=== PATIENT | female | born 1990 | race Asian ===

== ENCOUNTER 2016-07-21 20:56 | Inpatient (IN) | payer OTHER ==
[~2016-07-21] VITALS: Ht 134.6 cm; Wt 61.6 kg
[2016-07-21] MEDS ORDERED: CHARCOAL ACTIVATED LIQUID 25 GM/120 ML BTL As Ordered ONE ×2 (21:21→21:24)
[2016-07-21 21:48] LABS: CONTROL LINE INT CTR LINE PRESENT; METHADONE URINE NEGATIVE (NEGATIVE); TRICYCLIC ANTIDEPRESS URINE NEGATIVE (NEGATIVE)
[2016-07-21 21:58] LABS: MEAN CORPUSCULAR HGB CONC 32.5 g/dl (32.0-36.5); MEAN CORPUSCULAR VOLUME 80.1 fl (80.0-96.0); RED CELL DISTRIBUTION WIDTH 12.8 % (11.5-14.5); WHITE BLOOD COUNT 5.6 K/mm3 (4.0-10.0)
[2016-07-21 22:04] LABS: CONTROL LINE HCG INT CTR LINE PRESENT
--- NOTE | 2016-07-21 22:04 | ECGEPIP ---
Stationary ECG Study 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
[2016-07-21 22:21] LABS: ALBUMIN/GLOBULIN RATIO 1.29 (1.00-1.93); ALKALINE PHOSPHATASE 53 U/L (45-117); ALT/SGPT 29 U/L (12-78); ANION GAP 12 MEQ/L (8-16); AST/SGOT 20 U/L (15-37); BILIRUBIN,DIRECT 0.2 MG/DL (0.0-0.2); BILIRUBIN,TOTAL 0.9 MG/DL (0.2-1.0); BLOOD UREA NITROGEN 10 MG/DL (7-18); CALCIUM LEVEL 8.4 MG/DL (8.5-10.1); CARBON DIOXIDE LEVEL 23 MEQ/L (21-32); CHLORIDE LEVEL 108 MEQ/L (98-107); CREATININE FOR GFR 0.76 MG/DL (0.55-1.02); GLOMERULAR FILTRATION RATE > 60.0 (>60); GLUCOSE, FASTING 103 MG/DL (70-105); POTASSIUM SERUM 3.5 MEQ/L (3.5-5.1); SODIUM LEVEL 143 MEQ/L (136-145); TOTAL PROTEIN 7.1 GM/DL (6.4-8.2)
[2016-07-22] MEDS ORDERED: WELL100T2 PO (00:16)
[2016-07-22] MEDS ORDERED: AMBI5TAB PO (00:16)
[2016-07-22] MEDS ORDERED: LEXA1TAB2 PO (00:16)
[2016-07-22] MEDS ORDERED: MOM 30ML SUSPENSION UDC PO PRN (02:15)
[2016-07-22] MEDS ORDERED: MAALOX 30 ML SUSP *UDC PO PRN (02:15)
[2016-07-22] MEDS ORDERED: ACETAMINOPHEN TAB 650MG DOSE (2X325MG) PO PRN (02:15)
[2016-07-22] MEDS ORDERED: traZODone 50 MG TAB PO PRN (02:15)
[2016-07-22 02:52] VITALS: BP 138/98
--- NOTE | 2016-07-22 03:12 | EDDOCDS ---
Nurse's Notes [facility] Name: Roshan Jones Age: 25 yrs Sex: Female : 1990 Arrival Date: 07/21/2016 Time: 20:56 Bed OBSERVATION Private MD: Diagnosis: Intentional self-harm by sharp object;Adverse effect of selective serotonin and norepinephrine reuptake inhibitors-intentional overdosing of same without complications Presentation: 07/21 21:06 Presenting complaint: Patient states: patient crying states "I took a few pills I was cf2 upset". Denies SI/HI EMS states: Took approx 5 pills of Lexapro 20mg po and patient also with superficial laceration after getting into verbal disagreement. Adult Sepsis Screening: The patient does not have new or worsening altered mentation. Patient's respiratory rate is less than 22. Systolic blood pressure is greater than 100. Patient has a qSOFA score of 0- Negative Sepsis Screen. Suicide/Homicide risk assessment- The patient admits to and/or has been reported to be having suicidal ideations. 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 Transition of care: patient was not received from another setting of care. 21:06 Acuity: RAHUL Level 3 cf2 21:06 Method Of Arrival: Ambulance cf2 Triage Assessment: 21:11 General: Appears distressed, Behavior is cooperative, crying. Pain: Denies pain. Pt cf2 Declines HIV testing. The patient is triaged at the bedside. See Assessment in Nurses Notes section of ED record. Neurological: No deficits noted. EENT: No deficits noted. Cardiovascular: No deficits noted. Respiratory: No deficits noted. GI: No deficits noted. : No deficits noted. Derm: No deficits noted. Musculoskeletal: No deficits noted. Injury Description: No known injury. 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 Ambien Unknown Oral 2. Wellbutrin Unknown Oral 3. Lexapro 20 mg Oral tab - PMHx: Depression; - Social history: Smoking status: Patient states was never smoker of tobacco. Race: , Ethnicity: Not or No barriers to communication noted, Preferred Language: Kyrgyz. - Family history: Not pertinent. - : The pt / caregiver states he / she is not on anticoagulants. Home medication list is obtained from the patient. - Exposure Risk Screening:: None identified. Screenin:30 Screening information is obtained from the patient. Fall risk: No risks identified. cf2 Assistance ADL's: requires no assistance with activities of daily living. Abuse/DV Screen: The patient / caregiver reports he/she is: not in a situation that causes fear, pain or injury. Nutritional screening: No deficits noted. Advance Directives: Further advance directive information is declined. home support is adequate. Referral is made to PSA, Patient stated she took Lexapro 5 tabs po after a verbal altercation with s/o. Assessment: 21:00 General: Appears in no apparent distress, Behavior is cooperative, crying. cf2 21:00 Pain: Denies pain. Neurological: No deficits noted. EENT: No deficits noted. cf2 Cardiovascular: No deficits noted. Respiratory: No deficits noted. GI: No deficits noted. : No deficits noted. Derm: No deficits noted. Musculoskeletal: No deficits noted. Injury Description: Superficial laceration to inner left wrist. No bleeding at present time. 23:36 Reassessment: Patient appears in no apparent distress at this time. Patient denies pain cf2 at this time. Patient states feeling better. Adult Sepsis Screening: The patient does not have new or worsening altered mentation. Patient's respiratory rate is less than 22. Systolic blood pressure is greater than 100. Patient has a qSOFA score of 0- Negative Sepsis Screen. General: See triage note . Neurological: No deficits noted. Cardiovascular: No deficits noted. Respiratory: No deficits noted. GI: No deficits noted. : No deficits noted. Derm: superficial laceration to left inner wrist. Musculoskeletal: No deficits noted. Injury Description: superficial laceration. 23:42 General: After being medically cleared, patient's saline lock was D/C'd and patient was cf2 moved to psych room 1. Patient's CO at bedside. Patient currently alert and oriented, remains calm and cooperative, no longer crying. . 07/22 01:26 General: Appears in no apparent distress, Pt resting on stretcher, calm and sls1 cooperative, security observing will continue to assess. 02:44 Reassessment: Patient appears in no apparent distress at this time. 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 [facility]: cl The patient is not an established patient of [facility]. Referral Information: Evaluation referral is generated by [facility]. The patient was referred for evaluation because Pt ingested extra medications earlier this evening with intent of self harm.. Subjective: The patients chief complaint is Pt is flat, quiet, poor eye contact, minimal speech, admits to ingesting extra medications to "sleep forever", adds that she "just gave up" after BF broke up with her yesterday. Pt states "it all just clicked", referring to realization that the man she had been seeing for 6 months had no intention of his spouse to be with pt as she was led to believe. Pt reports "we were trying to have children together", thought BF's was aware of their relationship and was confident that BF would leave his spouse. Pt states "he just cheated on his with me, that's what it comes down to", pt admits to feeling suicidal today, had a few shots of "Jason, straight" and then took pills. Pt denies prior psych admissions but admits to taking pills with suicidal intent 02/19 but did not report it/seek tx at that time. Pt denies HI/AH/VH/substance abuse, has been in tx at [facility] for depression, denies family psych hx/issues.. Delusions are denied. Patient's mood is depressed, Hallucinations are denied. Mental Health history: depression, suicide attempt by attempted by OD last February, did not report it. Mental Health Admissions: None. Current Outpatient Mental Health Services: Psychiatrist / Agency: [facility]. Current living environment is The patient currently lives in a [facility]. The patient is single. Patient presents to Emergency Department with the following symptoms within the past 2 weeks: depressed mood, feelings of helplessness/hopelessness, poor impulse control, relational problem, sleep disturbance - insomnia, suicidal ideation with attempt/gesture by pills. Substance abuse: Pt denies. Mental status exam: Patients appearance is appropriate, Patient's behavior is minimally responsive Speech is mumbled. Affect is flat. Mood is depressed. Hallucinations are denied. Appetite is erratic Memory is fair. Energy level is tires easily. Content of thought is depressive. depressive Thought process is intact. Cognitive level is oriented to person, place, time and situation Patient's insight is poor. Judgement is poor. Rapport with interviewer is guarded. Suicidal Ideation present with a plan to kill self by pills. Homicidal ideation is not present. Disposition: Medically cleared for disposition by Romina Brar DO Psychiatric Consult is performed by phone with Dr Yunior Valderrama MD. 23:41 [facility] Admission Criteria: The patient has had a suicide attempt in the recent past. The cl patient displays symptoms of severe psychiatric disorder resulting in disordered behavior and significant interference with his / her ability to maintain self care. Psychomotor Retardation. poor impulse control. The patient requires continuous observation and/or control to protect self, others or property. The patient's care requires a multi-modal treatment plan under close supervision and coordination due to the complexity and severity of the patient's symptoms. Legal Status: Patient's legal status will be Emergency admission: . [place] Safe Act: [place] Safe Act is applicable to this patient. The patient poses a risk to self or other and the Nursing Visual Design Lead has been notified. He/She will enter the patient's data. DSM-V Differential Diagnosis: Adjustment Disorder (F43.2) with depressed mood (F43.21). Insurance Pre-Certification: Not Required, . Awaiting: transfer to [facility]. 23:53 Family Notification: Family notified of admission to [facility], Notification was given to Abby LUJAN in ED with pt... Vital Signs: 20:59 BP 143 / 93; Pulse 107; Resp 18; Temp 99.3(O); Pulse Ox 97% on R/A; Weight 61.23 kg rn1 (R); Height 53 in. (134.62 cm) (R); Pain 0/10; 21:32 Pulse 99 MON; cf2 21:35 Pulse 98 MON; cf2 21:38 Pulse 102 MON; cf2 21:44 Pulse 108 MON; cf2 21:47 Pulse 99 MON; cf2 21:51 Pulse 96 MON; cf2 21:56 Pulse 110 MON; cf2 21:59 Pulse 103 MON; cf2 22:03 Pulse 105 MON; cf2 22:09 Pulse 108 MON; cf2 22:13 Pulse 106 MON; cf2 22:17 Pulse 99 MON; cf2 22:21 Pulse 98 MON; cf2 22:27 Pulse 96 MON; cf2 22:30 BP 132 / 78; Temp 98.1; Pulse Ox 99% on R/A; Pain 0/10; cf2 22:32 Pulse 93 MON; cf2 22:38 Pulse 95 MON; cf2 22:41 Pulse 96 MON; cf2 22:47 Pulse 95 MON; cf2 22:52 Pulse 94 MON; cf2 22:56 Pulse 102 MON; cf2 07/22 02:43 BP 120 / 77; Pulse 103; Resp 18; Temp 97.6(T); Pulse Ox 98% ; Pain 0/10; mas 07/21 20:59 Body Mass Index 33.79 (61.23 kg, 134.62 cm) rn1 Vitals: 07/21 21:11 Log In Time N/A - ambulance arrival. cf2 ED Course: 20:57 Patient visited by Liam Eddy PCA. kb5 20:57 Patient moved to Waiting kb5 20:57 Patient moved to 1 kb5 20:58 Romina Brar DO is Attending Physician. cs11 20:58 Patient visited by Romina Brar DO. cs11 20:59 Ariadne Rico RN is Primary Nurse. cf2 20:59 Patient visited by Ariadne Rico RN. cf2 21:00 Patient visited by Ariadne Rico,WINTER. cf2 21:06 Patient visited by Ariadne Rico,WINTER. cf2 21:07 Patient visited by Ross Alvarez PCA. mdr 21:09 Triage Initiated cf2 21:15 EKG done. (by ED staff). lr2 21:16 ekg monitor tech on. Pulse ox on. NIBP on. lr2 21:44 Patient visited by Ariadne Rico RN. cf2 22:18 [facility] Payment Agreement was scanned into [employer] and attached to record. gjb 22:28 Patient visited by Ariadne Rico RN. cf2 22:30 The patient / caregiver is instructed regarding the plan of care and ED course. Patient cf2 has correct armband on for positive identification. Placed in gown. Placed in psych safe attire. Bed in low position. Call light in reach. Side rails up X 1. Side rails up X2. Adult w/ patient. Security observing. Sitter at bedside. Property secured in belongings bag- placed in locked locker. Door closed. Noise minimized. Visitors limited. Lights dimmed. Moved to private room. Oral care given. Verbal reassurance given. Warm blanket given. Pillow given. Head of bed elevated. Diet: Patient given water. Tolerated well. 22:30 Discontinued lock inserted by EMS. No procedures done that require assistance. cf2 22:35 EKG-ADULT Returned. EDMS 22:58 Patient moved to [facility] rn1 23:05 Patient moved to OBSERVATION cs11 23:09 Patient visited by Joe Buenrostro. mas 23:15 Patient visited by Joe Buenrostro. mas 23:30 Patient visited by Joe Buenrostro. mas 23:36 Patient visited by Ariadne Rico,WINTER. cf2 23:47 Patient visited by Mady Salcido. ajs 23:47 Yunior Valderrama MD is Hospitalizing Provider. cs11 23:55 E Legal paperwork was scanned into [employer] and attached to record. cl 07/22 00:00 Patient visited by Joe Buenrostro. mas 00:15 Patient visited by Joe Buenrostro. mas 00:32 Patient visited by Joe Buenrostro. mas 00:45 Patient visited by Joe Buenrostro. mas 00:47 Patient visited by Ariadne Rico,WINTER. cf2 01:00 Patient visited by Joe Buenrostro. mas 01:15 Patient visited by Joe Buenrostro. mas 01:26 Patient visited by Jennie Lyon RN. sls1 01:30 Patient visited by Joe Buenrostro. mas 01:45 Patient visited by Vahid Benítez. rn1 01:57 Patient visited by Joe Buenrostro. mas 02:00 Patient visited by Joe Buenrostro. mas 02:15 Patient visited by Joe Buenrostro. mas 02:30 Patient visited by Joe Buenrostro. mas 02:44 Patient visited by Ariadne Rico,WINTER. cf2 02:45 Patient visited by Joe Buenrostro. mas Administered Medications: 07/21 21:44 Drug: Activated Charcoal (1g/kg) 75 grams [activated charcoal 25 gram/120 mL oral cf2 suspension (7200 drps)] Route: PO; 07/22 00:05 Follow up: Response: No significant change. cf2 Attachments: 23:55 MHE Legal paperwork cl Order Results: Lab Order: Acetaminophen Level; SPEC'M 07/21/16 21:30 Test: ACETAMINOPHEN LEVEL; Value: < 2.0; Range: 10.0-30.0; Abnormal: Below low normal; Units: UG/ML; Status: F Lab Order: Basic Metabolic Profile; SPEC'M 07/21/16 21:30 Test: GLUCOSE, FASTING; Value: 103; Range: 70-105; Units: MG/DL; Status: F Test: BLOOD UREA NITROGEN; Value: 10; Range: 7-18; Units: MG/DL; Status: F Test: CREATININE FOR GFR; Value: 0.76; Range: 0.55-1.02; Units: MG/DL; Status: F Test: SODIUM LEVEL; Range: 136-145; Units: MEQ/L; Status: I Test: POTASSIUM SERUM; Range: 3.5-5.1; Units: MEQ/L; Status: I Test: CHLORIDE LEVEL; Range: 98-107; Units: MEQ/L; Status: I Test: CARBON DIOXIDE LEVEL; Range: 21-32; Units: MEQ/L; Status: I Test: ANION GAP; Range: 8-16; Units: MEQ/L; Status: I Test: CALCIUM LEVEL; Range: 8.5-10.1; Units: MG/DL; Status: I Test: GLOMERULAR FILTRATION RATE; Value: > 60.0; Range: >60; Status: F Test: SODIUM LEVEL; Value: 143; Range: 136-145; Units: MEQ/L; Status: F Test: POTASSIUM SERUM; Value: 3.5; Range: 3.5-5.1; Units: MEQ/L; Status: F Test: CHLORIDE LEVEL; Value: 108; Range: 98-107; Abnormal: Above high normal; Units: MEQ/L; Status: F Test: CARBON DIOXIDE LEVEL; Value: 23; Range: 21-32; Units: MEQ/L; Status: F Test: ANION GAP; Value: 12; Range: 8-16; Units: MEQ/L; Status: F Test: CALCIUM LEVEL; Value: 8.4; Range: 8.5-10.1; Abnormal: Below low normal; Units: MG/DL; Status: F Test Note: ; Units are mL/min/1.73 m2 Chronic Kidney Disease Staging per NKF: Stage I & II GFR >=60 Normal to Mildly Decreased Stage III GFR 30-59 Moderately Decreased Stage IV GFR 15-29 Severely Decreased Stage V GFR <15 Very Little GFR Left ESRD GFR <15 on CERTIFIED MEDICAL ASSISTANT Lab Order: Complete Blood Count; SPEC'M 07/21/16 21:30 Test: WHITE BLOOD COUNT; Value: 5.6; Range: 4.0-10.0; Units: K/mm3; Status: F Test: RED BLOOD COUNT; Value: 4.39; Range: 4.00-5.40; Units: M/mm3; Status: F Test: HEMOGLOBIN; Value: 11.4; Range: 12.0-16.0; Abnormal: Below low normal; Units: g/dl; Status: F Test: HEMATOCRIT; Value: 35.1; Range: 36.0-47.0; Abnormal: Below low normal; Units: %; Status: F Test: MEAN CORPUSCULAR VOLUME; Value: 80.1; Range: 80.0-96.0; Units: fl; Status: F Test: MEAN CORPUSCULAR HEMOGLOBIN; Value: 26.0; Range: 27.0-33.0; Abnormal: Below low normal; Units: pg; Status: F Test: MEAN CORPUSCULAR HGB CONC; Value: 32.5; Range: 32.0-36.5; Units: g/dl; Status: F Test: RED CELL DISTRIBUTION WIDTH; Value: 12.8; Range: 11.5-14.5; Units: %; Status: F Test: PLATELET COUNT, AUTOMATED; Value: 263; Range: 150-450; Units: k/mm3; Status: F Lab Order: Drug Eval Toxicology ED Only; SPEC'M 07/21/16 21:20 Test: AMPHETAMINES LEVEL URINE; Value: NEGATIVE; Range: NEGATIVE; Status: F Test: BARBITURATES URINE; Value: NEGATIVE; Range: NEGATIVE; Status: F Test: BENZODIAZEPINES URINE; Value: NEGATIVE; Range: NEGATIVE; Status: F Test: CANNABINOIDS URINE; Value: NEGATIVE; Range: NEGATIVE; Status: F Test: COCAINE METABOLITE URINE; Value: NEGATIVE; Range: NEGATIVE; Status: F Test: METHADONE URINE; Value: NEGATIVE; Range: NEGATIVE; Status: F Test: OPIATES URINE; Value: NEGATIVE; Range: NEGATIVE; Status: F Test: TRICYCLIC ANTIDEPRESS URINE; Value: NEGATIVE; Range: NEGATIVE; Status: F Test Note: ; ALL PRESUMPTIVE POSITIVE FINDINGS ARE UNCONFIRMED NORMAL VALUES THRESHOLD IN NG/ML AMPHETAMINES 1000 METHAMPHETAMINES 1000 BARBITURATES 300 BENZODIAZEPINES 300 CANNABINOIDS (THC) 50 COCAINE METABOLITE 300 METHADONE 300 OPIATES 300 PHENCYCLIDINE 25 TRICYCLIC ANTIDEPRESSANTS 1000 RESULTS ARE FOR MEDICAL PURPOSES ONLY. ALL URINE SPECIMENS WILL BE SAVED FOR 3 DAYS. IF CONFIRMATION OF A PRESUMPTIVE POSTIVE SCREEN RESULT IS DESIRED, CALL CHEMISTRY ([phone]) AND REQUEST URINE TO BE SENT TO REFERENCE LAB. FOR A LIST OF CLOSELY RELATED COMPOUNDS PLEASE CALL THE LAB. Lab Order: Ethyl Alcohol (ethanol); [facility]' 07/21/16 21:30 Test: ETHYL ALCOHOL (ETHANOL); Value: 0.081; Range: 0.000-0.010; Abnormal: Above high normal; Units: %; Status: F Lab Order: HCG,Serum Qualitative; [facility] 07/21/16 21:30 Test: HCG, SERUM QUALITATIVE; Value: NEGATIVE; Range: NEGATIVE; Status: F Lab Order: Liver Profile; [facility] 07/21/16 21:30 Test: AST/SGOT; Value: 20; Range: 15-37; Units: U/L; Status: F Test: ALT/SGPT; Value: 29; Range: 12-78; Units: U/L; Status: F Test: ALKALINE PHOSPHATASE; Value: 53; Range: 45-117; Units: U/L; Status: F Test: BILIRUBIN,TOTAL; Value: 0.9; Range: 0.2-1.0; Units: MG/DL; Status: F Test: BILIRUBIN,DIRECT; Value: 0.2; Range: 0.0-0.2; Units: MG/DL; Status: F Test: TOTAL PROTEIN; Value: 7.1; Range: 6.4-8.2; Units: GM/DL; Status: F Test: ALBUMIN; Value: 4.0; Range: 3.2-5.2; Units: GM/DL; Status: F Test: ALBUMIN/GLOBULIN RATIO; Value: 1.29; Range: 1.00-1.93; Status: F Lab Order: Salicylate Level; [facility] 07/21/16 21:30 Test: SALICYLATE LEVEL; Value: < 1.7; Range: 5.0-30.0; Abnormal: Below low normal; Units: MG/DL; Status: F Lab Order: Thyroid Stimulating Hormone; SPEC'M 07/21/16 21:30 Test: THYROID STIMULATING HORMONE; Value: 1.420; Range: 0.358-3.740; Units: uIU/ML; Status: F Radiology Order: EKG-ADULT Test: EKG-ADULT REASON FOR EXAMINATION: overdose; Stationary ECG Study; [facility] - ED; ; Test Date: 2016-07-21; Pat Name: ROSHAN JONES Department:; Room: -; Gender: F 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 cf2 23:48 Decision to Hospitalize by Provider. cs11 07/22 00:09 Discharge Assessment: Patient awake, alert and oriented x 3. No cognitive and/or cf2 functional deficits noted. Patient verbalized understanding of disposition instructions. Patient awake and alert. Oriented to person, place and time. patient administered narcotics - no. 02:44 The following High Risk Discharge criteria are identified: Yes, Admitted to mental cf2 health unit . Admitted to Psych accompanied by tech, via wheelchair. Condition: stable. 03:10 Patient left the ED. [facility] Signatures: Dispatcher [employer] EDMS Cash Al, NASIMA PSA Liam Lam, CALL MANAGER CALL MANAGER kb5 Joe Buenrostro Amanda ajs Strong, Shannon, RN RN sls1 Romina Brar DO DO cs11 Vahid Benítez rn1 Ross Alvarez, CALL MANAGER CALL MANAGER Lexy Nunn Christina, RN RN cf2 Reena Levy2 MTDD
--- NOTE | 2016-07-22 03:12 | EDDOCDS ---
Physician Documentation [facility] Name: Marisol Jackson Age: 25 yrs Sex: Female : 1990 Arrival Date: 07/21/2016 Time: 20:56 Bed OBSERVATION Private MD: Disposition: 07/21/16 23:48 Hospitalization ordered by Yunior Valderrama for Inpatient Admission. Preliminary diagnosis are Intentional self-harm by sharp object, Adverse effect of selective serotonin and norepinephrine reuptake inhibitors - intentional overdosing of same without complications. - Bed requested for Admit. - Status is Inpatient Admission. sls1 - Condition is Stable. - Problem is new. - Symptoms have improved. Historical: - Allergies: no known allergies; - Home Meds: 1. Ambien Unknown Oral 2. Wellbutrin Unknown Oral 3. Lexapro 20 mg Oral tab - PMHx: Depression; - Social history: Smoking status: Patient states was never smoker of tobacco. Race: , Ethnicity: Not or No barriers to communication noted, Preferred Language: Ukrainian. - Family history: Not pertinent. - : The pt / caregiver states he / she is not on anticoagulants. Home medication list is obtained from the patient. - Exposure Risk Screening:: None identified. 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 (134.62 cm) (R); Pain 0/10; 21:32 Pulse 99 MON; cf2 21:35 Pulse 98 MON; cf2 21:38 Pulse 102 MON; cf2 21:44 Pulse 108 MON; cf2 21:47 Pulse 99 MON; cf2 21:51 Pulse 96 MON; cf2 21:56 Pulse 110 MON; cf2 21:59 Pulse 103 MON; cf2 22:03 Pulse 105 MON; cf2 22:09 Pulse 108 MON; cf2 22:13 Pulse 106 MON; cf2 22:17 Pulse 99 MON; cf2 22:21 Pulse 98 MON; cf2 22:27 Pulse 96 MON; cf2 22:30 BP 132 / 78; Temp 98.1; Pulse Ox 99% on R/A; Pain 0/10; cf2 22:32 Pulse 93 MON; cf2 22:38 Pulse 95 MON; cf2 22:41 Pulse 96 MON; cf2 22:47 Pulse 95 MON; cf2 22:52 Pulse 94 MON; cf2 22:56 Pulse 102 MON; cf2 07/22 02:43 BP 120 / 77; Pulse 103; Resp 18; Temp 97.6(T); Pulse Ox 98% ; Pain 0/10; mas 07/21 20:59 Body Mass Index 33.79 (61.23 kg, 134.62 cm) rn1 MDM: 07/21 21:04 Activated Charcoal (1g/kg) Suspension 75 grams PO once ordered. cs11 21:04 Consult PFS/PSA/Chair And Couch Maker ordered. cs11 21:04 Consult PFS/PSA/Chair And Couch Maker: Patient's case requires discussion with on-call cs11 Psychiatrist ordered. 21:04 PSA/PFS to call Nursing Field Agent, to enter patient data on [place] Safe Act if patient cs11 involuntarily admitted or transferred for SI or HI ordered. 21:04 Confirm accurate psychiatric medication list and times of last dosage ordered. cs11 21:04 Detain Pt Until Medically/PFS Cleared ordered. cs11 21:05 Acetaminophen Level Ordered. EDMS 21:05 Basic Metabolic Profile Ordered. EDMS 21:05 Complete Blood Count Ordered. EDMS 21:05 Drug Eval Toxicology ED Only Ordered. EDMS 21:05 Ethyl Alcohol (ethanol) Ordered. EDMS 21:05 HCG,Serum Qualitative Ordered. EDMS 21:05 Liver Profile Ordered. EDMS 21:05 Salicylate Level Ordered. EDMS 21:05 Thyroid Stimulating Hormone Ordered. EDMS 21:05 ECG WITH READING ER PHYS+CARDIAG ordered. EDMS 22:11 Financial registration complete. gjb 22:18 [facility] [place] was [place] into [employer] and attached to record. gjb 22:48 Acetaminophen Level Reviewed. cs11 22:48 Basic Metabolic Profile Reviewed. cs11 22:48 Complete Blood Count Reviewed. cs11 22:48 Ethyl Alcohol (ethanol) Reviewed. cs11 22:48 Salicylate Level Reviewed. cs11 22:48 Drug Eval Toxicology ED Only Reviewed. cs11 22:48 HCG,Serum Qualitative Reviewed. cs11 22:48 Liver Profile Reviewed. cs11 22:48 Thyroid Stimulating Hormone Reviewed. cs11 22:48 EKG-ADULT Reviewed. cs11 22:48 Consult PFS/PSA/Socail Worker: Cleared medically for eval ordered. cs11 23:15 Consult PFS/PSA/Chair And Couch Maker complete. cl 23:15 Consult PFS/PSA/Chair And Couch Maker: Patient's case requires discussion with on-call cl Psychiatrist complete. 23:15 PSA/PFS to call Nursing Field Agent, to enter patient data on [facility] Safe Act if patient cl involuntarily admitted or transferred for SI or HI complete. 23:21 Consult PFS/PSA/Socail Worker: Cleared medically for eval complete. cl 23:50 BED REQUEST+ADM ordered. EDMS 23:54 Admit to [facility]: ordered. EDMS 23:55 [facility] Legal paperwork was scanned into [employer] and attached to record. cl 07/22 02:11 REGULAR DIET ordered. EDMS Administered Medications: 07/21 21:44 Drug: Activated Charcoal (1g/kg) 75 grams [activated charcoal 25 gram/120 mL oral cf2 suspension (7200 drps)] Route: PO; 07/22 00:05 Follow up: Response: No significant change. cf2 Signatures: Dispatcher [employer] EDMS Cash Al, PSA PSA cl Jennie Lyon, RN RN sls1 Nicolas Peña DO DO cs11 Lexy Woods Christina,RN RN cf2 The chart was reviewed and I authenticate all verbal orders and agree with the evaluation and treatment provided.Attachments: 07/21 22:18 [facility] Payment Agreement lupe MTDD
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
[2016-07-22] MEDS: ESCITALOPRAM OXALATE 10 MG TAB (LEXAPRO) PO SCH (09:08)
[2016-07-22] MEDS: buPROPion (WELLBUTRIN SR) 100 MG SR TAB PO SCH ×2 (09:08→20:01)
--- NOTE | 2016-07-22 11:25 | HPEPDOC ---
Medical History and Physical Date of Admission Jul 22, 2016 at 02:50 History and Physical PCP: [facility] ATTENDING: Dr. Koffi Simon HPI: 25yoF admitted to [facility] for MDD, being medically examined today. Patient had taken 5 pills of Lexapro and alcohol. She was medically cleared in the emergency department after receiving activated charcoal. No acute medical complaints today. Denies any fevers, chills, weakness, fatigue, GARCIA, CP, SOB, cough, palpitations, abdominal pain, N/V/D or changes in bowel or bladder habits. 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 Illicit Drugs: Denies IV Drug Use: Denies Tattoos done unprofessionally: Denies FAMHX: Mother: Alive, well Father: Alive, well Siblings: Alive, well Children: None Unexpected deaths due to medical reasons: None. ROS: As noted in HPI, otherwise 11pt ROS of systems reviewed and remarkable only for LMP 06/22/16 PE: GEN: 25yoF, appears stated age. Well-nourished, well developed. No acute distress. Alert and oriented x 3. Pleasant, interactive. HEENT: Normocephalic, atraumatic. Pupils are equal, round, and reactive to light. Extraocular movements are intact. No nystagmus appreciated. Sclera are nonicteric. Conjunctiva without injection. Nose midline. Nasal turbinates without bogginess. EACs both patent BL. TMs both visualized and william with good cone of light, no bulging or erythema. No facial asymmetry. Moist mucous membranes. Dentition fair. Pharynx pink and moist, no cobblestoning. Neck supple , trachea midline. No lymphadenopathy or thyromegaly appreciated. CHEST: Regular rate and rhythm, +S1, +S2 LUNGS: Clear to auscultation bilaterally. No wheezes, rales, or rhonchi. Breathing appears symmetric and easy. Patient is speaking in full sentences. No accessory muscle use. ABD: Round, soft, non-tender, non-distended. +Bowel sounds throughout. No rebound or guarding. No costovertebral angle tenderness. EXT: Pulses 2+ bilaterally dorsalis pedis and radial. No lower extremity edema appreciated. SKIN: [place], dry, warm. Capillary refill <2sec. No rashes. Superficial lacerations are noted at the left wrist. No drainage, minimal erythema. NEURO: Alert and oriented x 3. Cranial nerves III-XII are intact. No focal deficits appreciated. EK07/21/16 ST . Nonspecific T wave abnormalities 104 bpm. A&P: 25yoF admitted to [facility] for MDD 1. Psych. Plan per Psychiatry. EKG on file. 2. Lacerations left wrist. Keep area clean and dry. Dry dressing if needed. 3. Borderline EKG. No cardiac signs or symptoms appreciated on exam, follow with PCP. 4. Follow up with PCP on discharge. [facility]. 5. Staff member present throughout examination, Karin MAX. Vital Signs Vital Signs Label Value Date Time Patient Temperature 96.7 degrees F 07/22/16251 Temperature Source Tympanic 07/22/16 025 Pulse 87 07/22/16 025 Pulse 87 07/22/16 0252 Respiratory Rate 20 bpm 07/22/16 025 Bedside Pulse Oximetry 97 % 07/22/16 025 Item Value Date Time Oxygen Delivery Method Room Air 07/22/16 025 Laboratory Data Labs 24H Laboratory Tests 2 07/21/16 21:20: Urine Amphetamine Level NEGATIVE, Urine Benzodiazepines Screen NEGATIVE, Urine Cannabinoids NEGATIVE, Urine Cocaine Metabolite NEGATIVE, Urine Opiates Screen NEGATIVE, Urine Barbiturates, Qualitative NEGATIVE, Urine Methadone Screen NEGATIVE, Urine Tricyclic Antidepressants NEGATIVE 07/21/16 21:30: Acetaminophen Level < 2.0L, Aspartate Amino Transf (AST/SGOT) 20, Alanine Aminotransferase (ALT/SGPT) 29, Alkaline Phosphatase 53, Total Bilirubin 0.9, Direct Bilirubin 0.2, Albumin 4.0, Albumin/Globulin Ratio 1.29, Anion Gap 12, Calcium Level 8.4L, Ethyl Alcohol Level 0.081H, Glomerular Filtration Rate > 60.0, Human Chorionic Gonadotropin, Qual NEGATIVE, Salicylates Level < 1.7L, Thyroid Stimulating Hormone (TSH) 1.420, Total Protein 7.1 CBC/BMP Laboratory Tests 07/21/16 21:30 Red Blood Count 4.39, Mean Corpuscular Volume 80.1, Mean Corpuscular Hemoglobin 26.0 L, Mean Corpuscular Hemoglobin Concent 32.5, Red Cell Distribution Width 12.8 Home Medications Scheduled Bupropion HCl (Wellbutrin Sr) 100 Mg Tab 100 MG PO DAILY Escitalopram Oxalate (Lexapro) 20 Mg Tab 20 MG PO QHS Scheduled PRN Zolpidem Tartrate (Ambien) 5 Mg Tab 5 MG PO QHS PRN PRN SLEEP Allergies Coded Allergies: No Known Allergies (Unverified , 07/22/16) Marely Ardon Jul 22, 2016 11:24
[2016-07-22 18:00] VITALS: BP 121/72
[2016-07-22] MEDS: zolPIDEM TARTRATE 5 MG TAB PO PRN (20:02)
[2016-07-23 06:13] VITALS: BP 107/62
[2016-07-23] MEDS: buPROPion (WELLBUTRIN SR) 100 MG SR TAB PO SCH (08:25)
[2016-07-23] MEDS: ESCITALOPRAM OXALATE 10 MG TAB (LEXAPRO) PO SCH (08:25)
[2016-07-23 18:00] VITALS: BP 148/81
[2016-07-23] MEDS: zolPIDEM TARTRATE 5 MG TAB PO PRN (20:01)
--- NOTE | 2016-07-24 04:12 | EDDOCDS ---
Nurse's Notes [facility] Name: Roshan Joens Age: 25 yrs Sex: Female : 1990 Arrival Date: 07/21/2016 Time: 20:56 Bed OBSERVATION Private MD: Diagnosis: Intentional self-harm by sharp object;Adverse effect of selective serotonin and norepinephrine reuptake inhibitors-intentional overdosing of same without complications Presentation: 07/21 21:06 Presenting complaint: Patient states: patient crying states "I took a few pills I was cf2 upset". Denies SI/HI EMS states: Took approx 5 pills of Lexapro 20mg po and patient also with superficial laceration after getting into verbal disagreement. Adult Sepsis Screening: The patient does not have new or worsening altered mentation. Patient's respiratory rate is less than 22. Systolic blood pressure is greater than 100. Patient has a qSOFA score of 0- Negative Sepsis Screen. Suicide/Homicide risk assessment- The patient admits to and/or has been reported to be having suicidal ideations. 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 Transition of care: patient was not received from another setting of care. 21:06 Acuity: RAHUL Level 3 cf2 21:06 Method Of Arrival: Ambulance cf2 Triage Assessment: 21:11 General: Appears distressed, Behavior is cooperative, crying. Pain: Denies pain. Pt cf2 Declines HIV testing. The patient is triaged at the bedside. See Assessment in Nurses Notes section of ED record. Neurological: No deficits noted. EENT: No deficits noted. Cardiovascular: No deficits noted. Respiratory: No deficits noted. GI: No deficits noted. : No deficits noted. Derm: No deficits noted. Musculoskeletal: No deficits noted. Injury Description: No known injury. 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 Ambien Unknown Oral 2. Wellbutrin Unknown Oral 3. Lexapro 20 mg Oral tab - PMHx: Depression; - Social history: Smoking status: Patient states was never smoker of tobacco. Race: , Ethnicity: Not or No barriers to communication noted, Preferred Language: Thai. - Family history: Not pertinent. - : The pt / caregiver states he / she is not on anticoagulants. Home medication list is obtained from the patient. - Exposure Risk Screening:: None identified. Screenin:30 Screening information is obtained from the patient. Fall risk: No risks identified. cf2 Assistance ADL's: requires no assistance with activities of daily living. Abuse/DV Screen: The patient / caregiver reports he/she is: not in a situation that causes fear, pain or injury. Nutritional screening: No deficits noted. Advance Directives: Further advance directive information is declined. home support is adequate. Referral is made to PSA, Patient stated she took Lexapro 5 tabs po after a verbal altercation with s/o. Assessment: 21:00 General: Appears in no apparent distress, Behavior is cooperative, crying. cf2 21:00 Pain: Denies pain. Neurological: No deficits noted. EENT: No deficits noted. cf2 Cardiovascular: No deficits noted. Respiratory: No deficits noted. GI: No deficits noted. : No deficits noted. Derm: No deficits noted. Musculoskeletal: No deficits noted. Injury Description: Superficial laceration to inner left wrist. No bleeding at present time. 23:36 Reassessment: Patient appears in no apparent distress at this time. Patient denies pain cf2 at this time. Patient states feeling better. Adult Sepsis Screening: The patient does not have new or worsening altered mentation. Patient's respiratory rate is less than 22. Systolic blood pressure is greater than 100. Patient has a qSOFA score of 0- Negative Sepsis Screen. General: See triage note . Neurological: No deficits noted. Cardiovascular: No deficits noted. Respiratory: No deficits noted. GI: No deficits noted. : No deficits noted. Derm: superficial laceration to left inner wrist. Musculoskeletal: No deficits noted. Injury Description: superficial laceration. 23:42 General: After being medically cleared, patient's saline lock was D/C'd and patient was cf2 moved to psych room 1. Patient's CO at bedside. Patient currently alert and oriented, remains calm and cooperative, no longer crying. . 07/22 01:26 General: Appears in no apparent distress, Pt resting on stretcher, calm and sls1 cooperative, security observing will continue to assess. 02:44 Reassessment: Patient appears in no apparent distress at this time. 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 [facility] Behavioral Health: cl The patient is not an established patient of [facility]. Referral Information: Evaluation referral is generated by [facility]. The patient was referred for evaluation because Pt ingested extra medications earlier this evening with intent of self harm.. Subjective: The patients chief complaint is Pt is flat, quiet, poor eye contact, minimal speech, admits to ingesting extra medications to "sleep forever", adds that she "just gave up" after BF broke up with her yesterday. Pt states "it all just clicked", referring to realization that the man she had been seeing for 6 months had no intention of his spouse to be with pt as she was led to believe. Pt reports "we were trying to have children together", thought BF's was aware of their relationship and was confident that BF would leave his spouse. Pt states "he just cheated on his with me, that's what it comes down to", pt admits to feeling suicidal today, had a few shots of "Jason, straight" and then took pills. Pt denies prior psych admissions but admits to taking pills with suicidal intent 02/19 but did not report it/seek tx at that time. Pt denies HI/AH/VH/substance abuse, has been in tx at [facility] for depression, denies family psych hx/issues.. Delusions are denied. Patient's mood is depressed, Hallucinations are denied. Mental Health history: depression, suicide attempt by attempted by OD last February, did not report it. Mental Health Admissions: None. Current Outpatient Mental Health Services: Psychiatrist / Agency: [facility]. Current living environment is The patient currently lives in a [facility]. The patient is single. Patient presents to Emergency Department with the following symptoms within the past 2 weeks: depressed mood, feelings of helplessness/hopelessness, poor impulse control, relational problem, sleep disturbance - insomnia, suicidal ideation with attempt/gesture by pills. Substance abuse: Pt denies. Mental status exam: Patients appearance is appropriate, Patient's behavior is minimally responsive Speech is mumbled. Affect is flat. Mood is depressed. Hallucinations are denied. Appetite is erratic Memory is fair. Energy level is tires easily. Content of thought is depressive. depressive Thought process is intact. Cognitive level is oriented to person, place, time and situation Patient's insight is poor. Judgement is poor. Rapport with interviewer is guarded. Suicidal Ideation present with a plan to kill self by pills. Homicidal ideation is not present. Disposition: Medically cleared for disposition by Romina Brar DO Psychiatric Consult is performed by phone with Dr Yunior Valderrama MD. 23:41 [facility] Admission Criteria: The patient has had a suicide attempt in the recent past. The cl patient displays symptoms of severe psychiatric disorder resulting in disordered behavior and significant interference with his / her ability to maintain self care. Psychomotor Retardation. poor impulse control. The patient requires continuous observation and/or control to protect self, others or property. The patient's care requires a multi-modal treatment plan under close supervision and coordination due to the complexity and severity of the patient's symptoms. Legal Status: Patient's legal status will be Emergency admission: . [place] Safe Act: [place] Safe Act is applicable to this patient. The patient poses a risk to self or other and the Nursing Chief Executive has been notified. He/She will enter the patient's data. DSM-V Differential Diagnosis: Adjustment Disorder (F43.2) with depressed mood (F43.21). Insurance Pre-Certification: Not Required, . Awaiting: transfer to [facility]. 23:53 Family Notification: Family notified of admission to [facility], Notification was given to Abby LUJAN in ED with pt... Vital Signs: 20:59 BP 143 / 93; Pulse 107; Resp 18; Temp 99.3(O); Pulse Ox 97% on R/A; Weight 61.23 kg rn1 (R); Height 53 in. (134.62 cm) (R); Pain 0/10; 21:32 Pulse 99 MON; cf2 21:35 Pulse 98 MON; cf2 21:38 Pulse 102 MON; cf2 21:44 Pulse 108 MON; cf2 21:47 Pulse 99 MON; cf2 21:51 Pulse 96 MON; cf2 21:56 Pulse 110 MON; cf2 21:59 Pulse 103 MON; cf2 22:03 Pulse 105 MON; cf2 22:09 Pulse 108 MON; cf2 22:13 Pulse 106 MON; cf2 22:17 Pulse 99 MON; cf2 22:21 Pulse 98 MON; cf2 22:27 Pulse 96 MON; cf2 22:30 BP 132 / 78; Temp 98.1; Pulse Ox 99% on R/A; Pain 0/10; cf2 22:32 Pulse 93 MON; cf2 22:38 Pulse 95 MON; cf2 22:41 Pulse 96 MON; cf2 22:47 Pulse 95 MON; cf2 22:52 Pulse 94 MON; cf2 22:56 Pulse 102 MON; cf2 07/22 02:43 BP 120 / 77; Pulse 103; Resp 18; Temp 97.6(T); Pulse Ox 98% ; Pain 0/10; mas 07/21 20:59 Body Mass Index 33.79 (61.23 kg, 134.62 cm) rn1 Vitals: 07/21 21:11 Log In Time N/A - ambulance arrival. cf2 ED Course: 20:57 Patient visited by Liam Eddy PCA. kb5 20:57 Patient moved to Waiting kb5 20:57 Patient moved to 1 kb5 20:58 Romina Brar DO is Attending Physician. cs11 20:58 Patient visited by Romina Brar DO. cs11 20:59 Ariadne Rico RN is Primary Nurse. cf2 20:59 Patient visited by Ariadne Rico RN. cf2 21:00 Patient visited by Ariadne Rico,WINTER. cf2 21:06 Patient visited by Ariadne Rico,WINTER. cf2 21:07 Patient visited by Ross Alvarez PCA. mdr 21:09 Triage Initiated cf2 21:15 EKG done. (by ED staff). lr2 21:16 residential monitor on. Pulse ox on. NIBP on. lr2 21:44 Patient visited by Ariadne Rico RN. cf2 22:18 [facility] Payment Agreement was scanned into [employer] and attached to record. gjb 22:28 Patient visited by Ariadne Rico RN. cf2 22:30 The patient / caregiver is instructed regarding the plan of care and ED course. Patient cf2 has correct armband on for positive identification. Placed in gown. Placed in psych safe attire. Bed in low position. Call light in reach. Side rails up X 1. Side rails up X2. Adult w/ patient. Security observing. Sitter at bedside. Property secured in belongings bag- placed in locked locker. Door closed. Noise minimized. Visitors limited. Lights dimmed. Moved to private room. Oral care given. Verbal reassurance given. Warm blanket given. Pillow given. Head of bed elevated. Diet: Patient given water. Tolerated well. 22:30 Discontinued lock inserted by EMS. No procedures done that require assistance. cf2 22:35 EKG-ADULT Returned. EDMS 22:58 Patient moved to [facility] rn1 23:05 Patient moved to OBSERVATION cs11 23:09 Patient visited by Joe Buenrostro. mas 23:15 Patient visited by Joe Buenrostro. mas 23:30 Patient visited by Joe Buenrostro. mas 23:36 Patient visited by Ariadne Rico,WINTER. cf2 23:47 Patient visited by Mady Salcido. ajs 23:47 Yunior Valderrama MD is Hospitalizing Provider. cs11 23:55 E Legal paperwork was scanned into [employer] and attached to record. cl 07/22 00:00 Patient visited by Joe Buenrostro. mas 00:15 Patient visited by Joe Buenrostro. mas 00:32 Patient visited by Joe Buenrostro. mas 00:45 Patient visited by Joe Buenrostro. mas 00:47 Patient visited by Ariadne Rico,WINTER. cf2 01:00 Patient visited by Joe Buenrostro. mas 01:15 Patient visited by Joe Buenrostro. mas 01:26 Patient visited by Jennie Lyon, WINTER. sls1 01:30 Patient visited by Joe Buenrostro. mas 01:45 Patient visited by Vahid Benítez. rn1 01:57 Patient visited by Joe Buenrostro. mas 02:00 Patient visited by Jeo Buenrostro. mas 02:15 Patient visited by Joe Buenrostro. mas 02:30 Patient visited by Joe Buenrostro. mas 02:44 Patient visited by Ariadne Rico,WINTER. cf2 02:45 Patient visited by Joe Buenrostro. mas 15:46 T-Sheet-- Draft Copy was scanned into [employer] and attached to record. gb 15:47 ECG/EKG was scanned into [employer] and attached to record. gb 15:47 PCR was scanned into [employer] and attached to record. gb Administered Medications: 07/21 21:44 Drug: Activated Charcoal (1g/kg) 75 grams [activated charcoal 25 gram/120 mL oral cf2 suspension (7200 drps)] Route: PO; 07/22 00:05 Follow up: Response: No significant change. cf2 Attachments: 23:55 [facility] Legal paperwork cl Order Results: Lab Order: Acetaminophen Level; SPEC'M 07/21/16 21:30 Test: ACETAMINOPHEN LEVEL; Value: < 2.0; Range: 10.0-30.0; Abnormal: Below low normal; Units: UG/ML; Status: F Lab Order: Basic Metabolic Profile; SPEC'M 07/21/16 21:30 Test: GLUCOSE, FASTING; Value: 103; Range: 70-105; Units: MG/DL; Status: F Test: BLOOD UREA NITROGEN; Value: 10; Range: 7-18; Units: MG/DL; Status: F Test: CREATININE FOR GFR; Value: 0.76; Range: 0.55-1.02; Units: MG/DL; Status: F Test: SODIUM LEVEL; Range: 136-145; Units: MEQ/L; Status: I Test: POTASSIUM SERUM; Range: 3.5-5.1; Units: MEQ/L; Status: I Test: CHLORIDE LEVEL; Range: 98-107; Units: MEQ/L; Status: I Test: CARBON DIOXIDE LEVEL; Range: 21-32; Units: MEQ/L; Status: I Test: ANION GAP; Range: 8-16; Units: MEQ/L; Status: I Test: CALCIUM LEVEL; Range: 8.5-10.1; Units: MG/DL; Status: I Test: GLOMERULAR FILTRATION RATE; Value: > 60.0; Range: >60; Status: F Test: SODIUM LEVEL; Value: 143; Range: 136-145; Units: MEQ/L; Status: F Test: POTASSIUM SERUM; Value: 3.5; Range: 3.5-5.1; Units: MEQ/L; Status: F Test: CHLORIDE LEVEL; Value: 108; Range: 98-107; Abnormal: Above high normal; Units: MEQ/L; Status: F Test: CARBON DIOXIDE LEVEL; Value: 23; Range: 21-32; Units: MEQ/L; Status: F Test: ANION GAP; Value: 12; Range: 8-16; Units: MEQ/L; Status: F Test: CALCIUM LEVEL; Value: 8.4; Range: 8.5-10.1; Abnormal: Below low normal; Units: MG/DL; Status: F Test Note: ; Units are mL/min/1.73 m2 Chronic Kidney Disease Staging per NKF: Stage I & II GFR >=60 Normal to Mildly Decreased Stage III GFR 30-59 Moderately Decreased Stage IV GFR 15-29 Severely Decreased Stage V GFR <15 Very Little GFR Left ESRD GFR <15 on 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 Lab Order: Complete Blood Count; SPEC'M 07/21/16 21:30 Test: WHITE BLOOD COUNT; Value: 5.6; Range: 4.0-10.0; Units: K/mm3; Status: F Test: RED BLOOD COUNT; Value: 4.39; Range: 4.00-5.40; Units: M/mm3; Status: F Test: HEMOGLOBIN; Value: 11.4; Range: 12.0-16.0; Abnormal: Below low normal; Units: g/dl; Status: F Test: HEMATOCRIT; Value: 35.1; Range: 36.0-47.0; Abnormal: Below low normal; Units: %; Status: F Test: MEAN CORPUSCULAR VOLUME; Value: 80.1; Range: 80.0-96.0; Units: fl; Status: F Test: MEAN CORPUSCULAR HEMOGLOBIN; Value: 26.0; Range: 27.0-33.0; Abnormal: Below low normal; Units: pg; Status: F Test: MEAN CORPUSCULAR HGB CONC; Value: 32.5; Range: 32.0-36.5; Units: g/dl; Status: F Test: RED CELL DISTRIBUTION WIDTH; Value: 12.8; Range: 11.5-14.5; Units: %; Status: F Test: PLATELET COUNT, AUTOMATED; Value: 263; Range: 150-450; Units: k/mm3; Status: F Lab Order: Drug Eval Toxicology ED Only; SPEC'07/21/16 21:20 Test: AMPHETAMINES LEVEL URINE; Value: NEGATIVE; Range: NEGATIVE; Status: F Test: BARBITURATES URINE; Value: NEGATIVE; Range: NEGATIVE; Status: F Test: BENZODIAZEPINES URINE; Value: NEGATIVE; Range: NEGATIVE; Status: F Test: CANNABINOIDS URINE; Value: NEGATIVE; Range: NEGATIVE; Status: F Test: COCAINE METABOLITE URINE; Value: NEGATIVE; Range: NEGATIVE; Status: F Test: METHADONE URINE; Value: NEGATIVE; Range: NEGATIVE; Status: F Test: OPIATES URINE; Value: NEGATIVE; Range: NEGATIVE; Status: F Test: TRICYCLIC ANTIDEPRESS URINE; Value: NEGATIVE; Range: NEGATIVE; Status: F Test Note: ; ALL PRESUMPTIVE POSITIVE FINDINGS ARE UNCONFIRMED NORMAL VALUES THRESHOLD IN NG/ML AMPHETAMINES 1000 METHAMPHETAMINES 1000 BARBITURATES 300 BENZODIAZEPINES 300 CANNABINOIDS (THC) 50 COCAINE METABOLITE 300 METHADONE 300 OPIATES 300 PHENCYCLIDINE 25 TRICYCLIC ANTIDEPRESSANTS 1000 RESULTS ARE FOR MEDICAL PURPOSES ONLY. ALL URINE SPECIMENS WILL BE SAVED FOR 3 DAYS. IF CONFIRMATION OF A PRESUMPTIVE POSTIVE SCREEN RESULT IS DESIRED, CALL CHEMISTRY ([phone]) AND REQUEST URINE TO BE SENT TO REFERENCE LAB. FOR A LIST OF CLOSELY RELATED COMPOUNDS PLEASE CALL THE LAB. Lab Order: Ethyl Alcohol (ethanol); SPEC' 07/21/16 21:30 Test: ETHYL ALCOHOL (ETHANOL); Value: 0.081; Range: 0.000-0.010; Abnormal: Above high normal; Units: %; Status: F Lab Order: HCG,Serum Qualitative; SPEC'M 07/21/16 21:30 Test: HCG, SERUM QUALITATIVE; Value: NEGATIVE; Range: NEGATIVE; Status: F Lab Order: Liver Profile; SPEC' 07/21/16 21:30 Test: AST/SGOT; Value: 20; Range: 15-37; Units: U/L; Status: F Test: ALT/SGPT; Value: 29; Range: 12-78; Units: U/L; Status: F Test: ALKALINE PHOSPHATASE; Value: 53; Range: 45-117; Units: U/L; Status: F Test: BILIRUBIN,TOTAL; Value: 0.9; Range: 0.2-1.0; Units: MG/DL; Status: F Test: BILIRUBIN,DIRECT; Value: 0.2; Range: 0.0-0.2; Units: MG/DL; Status: F Test: TOTAL PROTEIN; Value: 7.1; Range: 6.4-8.2; Units: GM/DL; Status: F Test: ALBUMIN; Value: 4.0; Range: 3.2-5.2; Units: GM/DL; Status: F Test: ALBUMIN/GLOBULIN RATIO; Value: 1.29; Range: 1.00-1.93; Status: F Lab Order: Salicylate Level; SPEC'M 07/21/16 21:30 Test: SALICYLATE LEVEL; Value: < 1.7; Range: 5.0-30.0; Abnormal: Below low normal; Units: MG/DL; Status: F Lab Order: Thyroid Stimulating Hormone; SPEC'M 07/21/16 21:30 Test: THYROID STIMULATING HORMONE; Value: 1.420; Range: 0.358-3.740; Units: uIU/ML; Status: F Radiology Order: EKG-ADULT Test: EKG-ADULT REASON FOR EXAMINATION: overdose; Stationary ECG Study; [facility] - ED; ; Test Date: 2016-07-21; Pat Name: ROSHAN JONES Department:; Room: -; Gender: F 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 cf2 23:48 Decision to Hospitalize by Provider. cs11 07/22 00:09 Discharge Assessment: Patient awake, alert and oriented x 3. No cognitive and/or cf2 functional deficits noted. Patient verbalized understanding of disposition instructions. Patient awake and alert. Oriented to person, place and time. patient administered narcotics - no. 02:44 The following High Risk Discharge criteria are identified: Yes, Admitted to mental cf2 health unit . Admitted to Psych accompanied by tech, via wheelchair. Condition: stable. 03:10 Patient left the ED. sls1 Signatures: Dispatcher [employer] EDMS Cash Al, NASIMA PSA cl Barlucina, Maeve, Reg Reg gb Nunu, Liam, LABORATORY SCIENTIST LABORATORY SCIENTIST kb5 Joe Buenrostro Amanda ajs Strong Jennie, RN RN sls1 Romina Brar, DO DO cs11 Vahid Benítez rn1 Ross Alvarez, [place] LABORATORY SCIENTIST mdr Lexy Woods ChristinaRN RN cf2 Reena Levy lr2 Chart Complete MTDD
--- NOTE | 2016-07-24 04:12 | EDDOCDS ---
Physician Documentation [facility] Name: Marisol Jackson Age: 25 yrs Sex: Female : 1990 Arrival Date: 07/21/2016 Time: 20:56 Bed OBSERVATION Private MD: Disposition: 07/21/16 23:48 Hospitalization ordered by Yunior Valderrama for Inpatient Admission. Preliminary diagnosis are Intentional self-harm by sharp object, Adverse effect of selective serotonin and norepinephrine reuptake inhibitors - intentional overdosing of same without complications. - Bed requested for Admit. - Status is Inpatient Admission. sls1 - Condition is Stable. - Problem is new. - Symptoms have improved. Historical: - Allergies: no known allergies; - Home Meds: 1. Ambien Unknown Oral 2. Wellbutrin Unknown Oral 3. Lexapro 20 mg Oral tab - PMHx: Depression; - Social history: Smoking status: Patient states was never smoker of tobacco. Race: , Ethnicity: Not or No barriers to communication noted, Preferred Language: Polish. - Family history: Not pertinent. - : The pt / caregiver states he / she is not on anticoagulants. Home medication list is obtained from the patient. - Exposure Risk Screening:: None identified. 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 (134.62 cm) (R); Pain 0/10; 21:32 Pulse 99 MON; cf2 21:35 Pulse 98 MON; cf2 21:38 Pulse 102 MON; cf2 21:44 Pulse 108 MON; cf2 21:47 Pulse 99 MON; cf2 21:51 Pulse 96 MON; cf2 21:56 Pulse 110 MON; cf2 21:59 Pulse 103 MON; cf2 22:03 Pulse 105 MON; cf2 22:09 Pulse 108 MON; cf2 22:13 Pulse 106 MON; cf2 22:17 Pulse 99 MON; cf2 22:21 Pulse 98 MON; cf2 22:27 Pulse 96 MON; cf2 22:30 BP 132 / 78; Temp 98.1; Pulse Ox 99% on R/A; Pain 0/10; cf2 22:32 Pulse 93 MON; cf2 22:38 Pulse 95 MON; cf2 22:41 Pulse 96 MON; cf2 22:47 Pulse 95 MON; cf2 22:52 Pulse 94 MON; cf2 22:56 Pulse 102 MON; cf2 07/22 02:43 BP 120 / 77; Pulse 103; Resp 18; Temp 97.6(T); Pulse Ox 98% ; Pain 0/10; mas 07/21 20:59 Body Mass Index 33.79 (61.23 kg, 134.62 cm) rn1 MDM: 07/21 21:04 Activated Charcoal (1g/kg) Suspension 75 grams PO once ordered. cs11 21:04 Consult PFS/PSA/Computerized Table Cutter ordered. cs11 21:04 Consult PFS/PSA/Computerized Table Cutter: Patient's case requires discussion with on-call cs11 Psychiatrist ordered. 21:04 PSA/PFS to call Nursing Rubber Vulcanizing Machine Operator, to enter patient data on [place] if patient cs11 involuntarily admitted or transferred for SI or HI ordered. 21:04 Confirm accurate psychiatric medication list and times of last dosage ordered. cs11 21:04 Detain Pt Until Medically/PFS Cleared ordered. cs11 21:05 Acetaminophen Level Ordered. EDMS 21:05 Basic Metabolic Profile Ordered. EDMS 21:05 Complete Blood Count Ordered. EDMS 21:05 Drug Eval Toxicology ED Only Ordered. EDMS 21:05 Ethyl Alcohol (ethanol) Ordered. EDMS 21:05 HCG,Serum Qualitative Ordered. EDMS 21:05 Liver Profile Ordered. EDMS 21:05 Salicylate Level Ordered. EDMS 21:05 Thyroid Stimulating Hormone Ordered. EDMS 21:05 ECG WITH READING ER PHYS+CARDIAG ordered. EDMS 22:11 Financial registration complete. gjb 22:18 [place] [place] Payment Agreement was scanned into [employer] and attached to record. gjb 22:48 Acetaminophen Level Reviewed. cs11 22:48 Basic Metabolic Profile Reviewed. cs11 22:48 Complete Blood Count Reviewed. cs11 22:48 Ethyl Alcohol (ethanol) Reviewed. cs11 22:48 Salicylate Level Reviewed. cs11 22:48 Drug Eval Toxicology ED Only Reviewed. cs11 22:48 HCG,Serum Qualitative Reviewed. cs11 22:48 Liver Profile Reviewed. cs11 22:48 Thyroid Stimulating Hormone Reviewed. cs11 22:48 EKG-ADULT Reviewed. cs11 22:48 Consult PFS/PSA/Socail Worker: Cleared medically for eval ordered. cs11 23:15 Consult PFS/PSA/Computerized Table Cutter complete. cl 23:15 Consult PFS/PSA/Computerized Table Cutter: Patient's case requires discussion with on-call cl Psychiatrist complete. 23:15 PSA/PFS to call Nursing Rubber Vulcanizing Machine Operator, to enter [place] data [place] if patient cl involuntarily admitted or transferred for SI or HI complete. 23:21 Consult PFS/PSA/Socail Worker: Cleared medically for eval complete. cl 23:50 BED REQUEST+ADM ordered. EDMS 23:54 Admit to IM: ordered. EDMS 23:55 MHE Legal paperwork was scanned into [employer] and attached to record. cl 07/22 02:11 REGULAR DIET ordered. EDMS 15:46 T-Sheet-- Draft Copy was scanned into [employer] and attached to record. gb 15:47 ECG/EKG was scanned into [employer] and attached to record. gb 15:47 PCR was scanned into [employer] and attached to record. gb Administered Medications: 07/21 21:44 Drug: Activated Charcoal (1g/kg) 75 grams [activated charcoal 25 gram/120 mL oral cf2 suspension (7200 drps)] Route: PO; 07/22 00:05 Follow up: Response: No significant change. cf2 Signatures: Dispatcher [employer] EDMS Cash Al, PSA PSA cl Maeve Santos, Reg Reg gb Jennie Lyon, RN RN sls1 Nicolas Peña, DO cs11 Lexy Woods [facility] Ariadne Rico,RN RN cf2 The chart was reviewed and I authenticate all verbal orders and agree with the evaluation and treatment provided.Attachments: 07/21 22:18 ON LICENSE OF [facility] Payment Agreement [email or web address] 07/22 15:46 T-Sheet-- Draft Copy gb 15:47 ECG/EKG gb Chart Complete MTDD
--- NOTE | 2016-07-24 04:12 | EDDOCDS ---
Physician Documentation [facility] Name: Marisol Jackson Age: 25 yrs Sex: Female : 1990 Arrival Date: 07/21/2016 Time: 20:56 Bed OBSERVATION Private MD: Disposition: 07/21/16 23:48 Hospitalization ordered by Yunior Valderrama for Inpatient Admission. Preliminary diagnosis are Intentional self-harm by sharp object, Adverse effect of selective serotonin and norepinephrine reuptake inhibitors - intentional overdosing of same without complications. - Bed requested for Admit. - Status is Inpatient Admission. sls1 - Condition is Stable. - Problem is new. - Symptoms have improved. Historical: - Allergies: no known allergies; - Home Meds: 1. Ambien Unknown Oral 2. Wellbutrin Unknown Oral 3. Lexapro 20 mg Oral tab - PMHx: Depression; - Social history: Smoking status: Patient states was never smoker of tobacco. Race: , Ethnicity: Not or No barriers to communication noted, Preferred Language: Maltese. - Family history: Not pertinent. - : The pt / caregiver states he / she is not on anticoagulants. Home medication list is obtained from the patient. - Exposure Risk Screening:: None identified. 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 (134.62 cm) (R); Pain 0/10; 21:32 Pulse 99 MON; cf2 21:35 Pulse 98 MON; cf2 21:38 Pulse 102 MON; cf2 21:44 Pulse 108 MON; cf2 21:47 Pulse 99 MON; cf2 21:51 Pulse 96 MON; cf2 21:56 Pulse 110 MON; cf2 21:59 Pulse 103 MON; cf2 22:03 Pulse 105 MON; cf2 22:09 Pulse 108 MON; cf2 22:13 Pulse 106 MON; cf2 22:17 Pulse 99 MON; cf2 22:21 Pulse 98 MON; cf2 22:27 Pulse 96 MON; cf2 22:30 BP 132 / 78; Temp 98.1; Pulse Ox 99% on R/A; Pain 0/10; cf2 22:32 Pulse 93 MON; cf2 22:38 Pulse 95 MON; cf2 22:41 Pulse 96 MON; cf2 22:47 Pulse 95 MON; cf2 22:52 Pulse 94 MON; cf2 22:56 Pulse 102 MON; cf2 07/22 02:43 BP 120 / 77; Pulse 103; Resp 18; Temp 97.6(T); Pulse Ox 98% ; Pain 0/10; mas 07/21 20:59 Body Mass Index 33.79 (61.23 kg, 134.62 cm) rn1 MDM: 07/21 21:04 Activated Charcoal (1g/kg) Suspension 75 grams PO once ordered. cs11 21:04 Consult PFS/PSA/ ordered. cs11 21:04 Consult PFS/PSA/: Patient's case requires discussion with on-call cs11 Psychiatrist ordered. 21:04 PSA/PFS to call Nursing Aquacultural Worker Supervisor, to enter [place] data [place] if patient cs11 involuntarily admitted or transferred for SI or HI ordered. 21:04 Confirm accurate psychiatric medication list and times of last dosage ordered. cs11 21:04 Detain Pt Until Medically/PFS Cleared ordered. cs11 21:05 Acetaminophen Level Ordered. EDMS 21:05 Basic Metabolic Profile Ordered. EDMS 21:05 Complete Blood Count Ordered. EDMS 21:05 Drug Eval Toxicology ED Only Ordered. EDMS 21:05 Ethyl Alcohol (ethanol) Ordered. EDMS 21:05 HCG,Serum Qualitative Ordered. EDMS 21:05 Liver Profile Ordered. EDMS 21:05 Salicylate Level Ordered. EDMS 21:05 Thyroid Stimulating Hormone Ordered. EDMS 21:05 ECG WITH READING ER PHYS+CARDIAG ordered. EDMS 22:11 Financial registration complete. gjb 22:18 [facility] [place] Payment Agreement was scanned into [employer] and attached to record. gjb 22:48 Acetaminophen Level Reviewed. cs11 22:48 Basic Metabolic Profile Reviewed. cs11 22:48 Complete Blood Count Reviewed. cs11 22:48 Ethyl Alcohol (ethanol) Reviewed. cs11 22:48 Salicylate Level Reviewed. cs11 22:48 Drug Eval Toxicology ED Only Reviewed. cs11 22:48 HCG,Serum Qualitative Reviewed. cs11 22:48 Liver Profile Reviewed. cs11 22:48 Thyroid Stimulating Hormone Reviewed. cs11 22:48 EKG-ADULT Reviewed. cs11 22:48 Consult PFS/PSA/Socail Worker: Cleared medically for eval ordered. cs11 23:15 Consult PFS/PSA/ complete. cl 23:15 Consult PFS/PSA/: Patient's case requires discussion with on-call cl Psychiatrist complete. 23:15 PSA/PFS to call Nursing Aquacultural Worker Supervisor, to enter [place] if patient cl involuntarily admitted or transferred for SI or HI complete. 23:21 Consult PFS/PSA/Socail Worker: Cleared medically for eval complete. cl 23:50 BED REQUEST+ADM ordered. EDMS 23:54 Admit to IM: ordered. EDMS 23:55 MHE Legal paperwork was scanned into [employer] and attached to record. cl 07/22 02:11 REGULAR DIET ordered. EDMS 15:46 T-Sheet-- Draft Copy was scanned into [employer] and attached to record. gb 15:47 ECG/EKG was scanned into [employer] and attached to record. gb 15:47 PCR was scanned into [employer] and attached to record. gb Administered Medications: 07/21 21:44 Drug: Activated Charcoal (1g/kg) 75 grams [activated charcoal 25 gram/120 mL oral cf2 suspension (7200 drps)] Route: PO; 07/22 00:05 Follow up: Response: No significant change. cf2 Signatures: Dispatcher [employer] EDMS Cash Al, PSA PSA cl Maeve Santos, Reg Reg gb Jennie Lyon, RN RN sls1 Nicolas Peña, DO cs11 Lexy Woods [facility] Ariadne Rico,RN RN cf2 The chart was reviewed and I authenticate all verbal orders and agree with the evaluation and treatment provided.Attachments: 07/21 22:18 [facility] Payment Agreement [email or web address] 07/22 15:46 T-Sheet-- Draft Copy gb 15:47 ECG/EKG gb Chart Complete MTDD
[2016-07-24 06:48] VITALS: BP 106/62
[2016-07-24] MEDS: ESCITALOPRAM OXALATE 10 MG TAB (LEXAPRO) PO SCH (08:11)
[2016-07-24] MEDS: buPROPion (WELLBUTRIN SR) 100 MG SR TAB PO SCH (08:12)
[2016-07-24] MEDS: zolPIDEM TARTRATE 5 MG TAB PO PRN (20:09)
[2016-07-25 06:24] VITALS: BP 99/58
[2016-07-25] MEDS: ESCITALOPRAM OXALATE 10 MG TAB (LEXAPRO) PO SCH (08:27)
[2016-07-25] MEDS: buPROPion (WELLBUTRIN SR) 100 MG SR TAB PO SCH (08:27)
[2016-07-25 18:00] VITALS: BP 110/60
[2016-07-25] MEDS: zolPIDEM TARTRATE 5 MG TAB PO PRN (20:06)
--- NOTE | 2016-07-26 06:02 | IPNPDOC ---
[facility] Progress Note Progress Note DATE OF SERVICE: 07/23/16 SUBJECTIVE: Patient tearful on interview. She reports feeling she is not as sick as the majority of her peers. She reports feeling as if she doesnt belong here. Patient denies SI/HI and AH/VH. She expresses regret for her OD and SIB prior to admission. She describes it as an attempt to hurt herself not kill herself. Patient has been attending groups and is visible in the milieu. Patient is med compliant and denies med S/E. Sleep and appetite are wnl. OBJECTIVE: VITAL SIGNS: See below. NEW TEST RESULTS: See below. CURRENT MEDICATIONS: See below. MENTAL STATUS EXAMINATION: Patient is a 25-year old female, who is [pleasant, cooperative, well kempt], [ moderate frame, in NAD]. Speech: Is normal in rate, volume, and articulation, and is coherent and spontaneous Language skills are [intact]. Thought processes including: [clear, Goal directed]. Thought content: focused on discharge Description of abnormal or psychotic thoughts: [NO hallucinations, delusions, preoccupation with violence, homicidal or suicidal ideation, and obsessions]. Judgment: [fair]. Insight: fair]. Orientation to [time, place and person]. Recent and remote memory: [Immediate, short-term and long-term memory is intact] . Attention span and concentration: fair. Language: [Normal]. Fund of knowledge: [adequate Mood: dysthymic Affect: dysthymic ASSESSMENT:[MDD, R, S w/o PFs] MANAGEMENT PLAN: [Continue current psychotropic regimen]. TIME SPENT: [30] minutes. Vital Signs Vital Signs Date Time Temp Pulse Resp B/P Pulse Ox O2 Delivery O2 Flow Rate FiO2 07/25/16 18:00 99.1 71 16 110/60 07/22/16 02:52 98 Room Air Current Medications Current Medications Acetaminophen (Tylenol Tab) 650 mg Q6HP PRN PO HEADACHE or DISCOMFORT Last administered on 07/23/16t 10:17; Start 07/22/16 at 02:15; Stop 08/21/16 at 02:14 Al Hydrox/Mg Hydrox/Simethicone (Mylanta) 30 ml Q4HP PRN PO HEARTBURN/ INDIGESTION; Start 07/22/16 at 02:15; Stop 08/21/16 at 02:14 Bupropion HCl (Wellbutrin Sr) 100 mg BID PO Last administered on 07/23/16 08: 25; Start 07/22/16 at 09:00; Stop 07/23/16 at 14:08; Status DC Bupropion HCl (Wellbutrin Sr) 100 mg QAM PO Last administered on 07/25/16 08: 27; Start 07/24/16 at 09:00; Stop 08/23/16 at 08:59 Escitalopram Oxalate (Lexapro) 30 mg DAILY PO Last administered on 07/25/16 08 :27; Start 07/22/16 at 09:00; Stop 08/21/16 at 08:59 Home Med (Med Rec Complete!) ASDIRECTED XX ; Start 07/22/16 at 00:30; Stop at 02:57; Status DC Magnesium Hydroxide (Milk Of Magnesia) 30 ml DAILYPRN PRN PO CONSTIPATION Last administered on 07/23/16 15:29; Start 07/22/16 at 02:15; Stop 08/21/16 at 02:14 Trazodone HCl (Desyrel) 50 mg QHSP PRN PO INSOMNIA; Start 07/22/16 at 02:15; Stop 08/21/16 at 02:14 Zolpidem Tartrate (Ambien) 5 mg QHSP PRN PO INSOMNIA Last administered on 20:06; Start 07/22/16 at 08:30; Stop 07/29/16 at 08:29 Allergies Coded Allergies: No Known Allergies (Unverified , 07/22/16) SYED ARZOLA MD Jul 26, 2016 06:02
[2016-07-26 06:49] VITALS: BP 103/51
[2016-07-26] MEDS: ESCITALOPRAM OXALATE 10 MG TAB (LEXAPRO) PO SCH (08:27)
[2016-07-26] MEDS: buPROPion (WELLBUTRIN SR) 100 MG SR TAB PO SCH (08:27)
--- NOTE | 2016-07-26 09:52 | IPN ---
DATE: 07/24/2016 SUBJECTIVE: "I am feeling about the same." OBJECTIVE: Patient continues depressed, is laying in bed, withdrawn, with very little interaction with other patients. Patient has psychomotor retardation and restricted facial expression. Patient is denying suicidal ideation during the interview. There is no evidence of psychotic symptoms. MENTAL STATUS EXAMINATION: Patient is dressed in [facility]. Patient's eye contact is poor. Speech is slow and monotone. Mood is depressed and anxious. Affect is restricted. No evidence of delusions or hallucinations. Memory is fair. Patient is fully oriented. Patient is able to contract for safety and denies suicidal or homicidal ideation during the interview. Insight and judgment is limited. ASSESSMENT: 1. Major depression. 2. Overdose. PLAN: 1. Continue with Wellbutrin 100 mg by mouth every morning. 2. Continue with Lexapro 30 mg by mouth every morning. 3. Continue with Ambien 5 mg by mouth nightly as needed for insomnia.
--- NOTE | 2016-07-26 13:23 | IPNPDOC ---
[facility] Progress Note Progress Note DATE OF SERVICE: 07/26/16 SUBJECTIVE: Patient reports improving mood but ongoing issue with her recent breakup. She reports deciding to prioritize career and move on from that relationship. Patient denies SI/HI and AH/VH. She expresses regret for her OD and SIB prior to admission. 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 Patient has been attending groups and is visible in the milieu. Patient is med compliant and denies med S/E. Sleep and appetite are wnl. OBJECTIVE: VITAL SIGNS: See below. NEW TEST RESULTS: See below. CURRENT MEDICATIONS: See below. MENTAL STATUS EXAMINATION: Patient is a 25-year old female, who is pleasant, cooperative, well kempt, moderate frame, in NAD. Speech: Is normal in rate, volume, and articulation, and is coherent and spontaneous Language skills are intact. Thought processes including: clear, Goal directed. Thought content: focused on discharge Description of abnormal or psychotic thoughts: NO hallucinations, delusions, preoccupation with violence, homicidal or suicidal ideation, and obsessions. Judgment: fair. Insight: fair. Orientation to time, place and person. Recent and remote memory: Immediate, short-term and long-term memory is intact. Attention span and concentration: fair. Language: Normal. Fund of knowledge: adequate Mood: Mildly depressed Affect: Broad ASSESSMENT: MDD, R, S w/o PFs MANAGEMENT PLAN: Continue current psychotropic regimen. ESTIMATED DATE OF DISCHARGE: 07/27/16 TIME SPENT: 30 minutes. Vital Signs Vital Signs Date Time Temp Pulse Resp B/P Pulse Ox O2 Delivery O2 Flow Rate FiO2 07/26/16 06:49 99.7 63 18 103/51 07/22/16 02:52 98 Room Air Current Medications Current Medications Acetaminophen (Tylenol Tab) 650 mg Q6HP PRN PO HEADACHE or DISCOMFORT Last administered on 07/23/16 10:17; Start 07/22/16 at 02:15; Stop 08/21/16 at 02:14 Al Hydrox/Mg Hydrox/Simethicone (Mylanta) 30 ml Q4HP PRN PO HEARTBURN/ INDIGESTION; Start 07/22/16 at 02:15; Stop 08/21/16 at 02:14 Bupropion HCl (Wellbutrin Sr) 100 mg BID PO Last administered on 07/23/16 08: 25; Start 07/22/16 at 09:00; Stop 07/23/16 at 14:08; Status DC Bupropion HCl (Wellbutrin Sr) 100 mg QAM PO Last administered on 07/26/16 08: 27; Start 07/24/16 at 09:00; Stop 08/23/16 at 08:59 Escitalopram Oxalate (Lexapro) 30 mg DAILY PO Last administered on 07/26/16 08 :27; Start 07/22/16 at 09:00; Stop 08/21/16 at 08:59 Home Med (Med Rec Complete!) ASDIRECTED XX ; Start 07/22/16 at 00:30; Stop at 02:57; Status DC Magnesium Hydroxide (Milk Of Magnesia) 30 ml DAILYPRN PRN PO CONSTIPATION Last administered on 07/23/16 15:29; Start 07/22/16 at 02:15; Stop 08/21/16 at 02:14 Trazodone HCl (Desyrel) 50 mg QHSP PRN PO INSOMNIA; Start 07/22/16 at 02:15; Stop 08/21/16 at 02:14 Zolpidem Tartrate (Ambien) 5 mg QHSP PRN PO INSOMNIA Last administered on 20:06; Start 07/22/16 at 08:30; Stop 07/29/16 at 08:29 Allergies Coded Allergies: No Known Allergies (Unverified , 07/22/16) SYED ARZOLA MD Jul 26, 2016 13:23
--- NOTE | 2016-07-26 17:08 | IPN ---
DATE: 07/25/2016 SUBJECTIVE: "I am feeling a little better." OBJECTIVE: Patient is reporting improvement, however she stays most of the time in bed. Is isolating and does not feel to talk to other patients. Patient id denying side effects from the medication. Patient reports normal sleep with the medication at bedtime. MENTAL STATUS EXAMINATION: Patient is dressed in [facility]. Patient is cooperative during the exam. Has poor eye contact. Speech is slow and monotone. Mood is depressed and anxious. Affect is restricted. Denies delusions or hallucinations. Memory is fair. Patient is fully oriented. Associations are intact. Thinking is logical. Thought content is appropriate. Patient is able to contract for safety and denies suicidal or homicidal ideation during the interview. Insight and judgment is limited. ASSESSMENT: 1. Major depression. 2. Overdose. PLAN: 1. Bupropion 100 mg by mouth in the morning. 2. Lexapro 30 mg by mouth in the morning. 3. Ambien 5 mg by mouth nightly as needed for insomnia. 4. Continue close observation. 5. Continue medication management, individual and group therapy.
[2016-07-26 18:00] VITALS: BP 110/60
[2016-07-26] MEDS: zolPIDEM TARTRATE 5 MG TAB PO PRN (20:16)
[2016-07-27 06:30] VITALS: BP 102/52
[2016-07-27] MEDS: buPROPion (WELLBUTRIN SR) 100 MG SR TAB PO SCH (08:05)
[2016-07-27] MEDS: ESCITALOPRAM OXALATE 10 MG TAB (LEXAPRO) PO SCH (08:05)
[2016-07-27] MEDS ORDERED: BUPR10TASR PO (08:39)
[2016-07-27] MEDS ORDERED: ESCI10TA2 PO (08:39)
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
== END 2016-07-27 12:30 | disposition home or self-care (01) | DRG 885 ==
LOC: M ED 20:56 → M PSY 07-22 02:50
PROVIDERS: ADMIT Psychiatry & Neurology Psychiatry; ATTEND Psychiatry & Neurology Psychiatry
DX: F33.2 Major depressive disorder, recurrent severe without psychotic features (principal); F43.25 Adjustment disorder with mixed disturbance of emotions and conduct; T43.222A Poisoning by selective serotonin reuptake inhibitors, intentional self-harm, initial encounter; Y92.009 Unspecified place in unspecified non-institutional (private) residence as the place of occurrence of the external cause; S61.512A Laceration without foreign body of left wrist, initial encounter; X78.1XXA Intentional self-harm by knife, initial encounter; Z79.899 Other long term (current) drug therapy; Z91.5 Personal history of self-harm

== ENCOUNTER 2016-08-02 18:00 | Observation (INO) | payer OTHER ==
[~2016-08-02] VITALS: Ht 149.9 cm; Wt 60.9 kg
[~2016-08-02 18:00] MED LIST: AMBI5TAB PO; BUPR10TASR PO; ESCI10TA2 PO; LEXA1TAB2 PO; WELL100T2 PO
[2016-08-02] MEDS ORDERED: CHARCOAL ACTIVATED LIQUID 25 GM/120 ML BTL As Ordered ONE (18:22)
[2016-08-02 18:28] LABS: MEAN CORPUSCULAR HEMOGLOBIN 26.5 pg (27.0-33.0); MEAN CORPUSCULAR HGB CONC 33.4 g/dl (32.0-36.5); MEAN CORPUSCULAR VOLUME 79.4 fl (80.0-96.0); RED CELL DISTRIBUTION WIDTH 12.7 % (11.5-14.5); WHITE BLOOD COUNT 13.3 K/mm3 (4.0-10.0)
[2016-08-02 18:39] LABS: CONTROL LINE HCG INT CTR LINE PRESENT
[2016-08-02 18:55] LABS: ALBUMIN/GLOBULIN RATIO 1.14 (1.00-1.93); ALKALINE PHOSPHATASE 49 U/L (45-117); ALT/SGPT 20 U/L (12-78); ANION GAP 14 MEQ/L (8-16); AST/SGOT 16 U/L (15-37); BILIRUBIN,DIRECT < 0.1 MG/DL (0.0-0.2); BILIRUBIN,TOTAL 0.4 MG/DL (0.2-1.0); BLOOD UREA NITROGEN 14 MG/DL (7-18); CALCIUM LEVEL 7.8 MG/DL (8.5-10.1); CARBON DIOXIDE LEVEL 24 MEQ/L (21-32); CHLORIDE LEVEL 99 MEQ/L (98-107); CREATININE FOR GFR 0.84 MG/DL (0.55-1.02); GLOMERULAR FILTRATION RATE > 60.0 (>60); GLUCOSE, FASTING 99 MG/DL (70-105); POTASSIUM SERUM 3.1 MEQ/L (3.5-5.1); SODIUM LEVEL 137 MEQ/L (136-145); TOTAL PROTEIN 7.5 GM/DL (6.4-8.2)
[2016-08-02 19:18] LABS: CONTROL LINE INT CTR LINE PRESENT; METHADONE URINE NEGATIVE (NEGATIVE); TRICYCLIC ANTIDEPRESS URINE NEGATIVE (NEGATIVE)
[2016-08-02] MEDS ORDERED: AMBI5TAB PO (19:25)
[2016-08-02] MEDS ORDERED: WELL100T2 PO (19:25)
[2016-08-02] MEDS ORDERED: LEXA1TAB PO (19:25)
[2016-08-02] MEDS ORDERED: ACETAMINOPHEN TAB 650MG DOSE (2X325MG) PO PRN (19:30)
[2016-08-02] MEDS ORDERED: POTASSIUM CHLORIDE 10 MEQ SR TABLET PO ONE (19:30)
[2016-08-02] MEDS ORDERED: BISACODYL 5 MG TAB PO PRN (19:30)
[2016-08-02] MEDS ORDERED: ONDANSETRON 4MG/2ML VIAL (J2405) IV PRN (19:30)
[2016-08-02] MEDS ORDERED: LORazepam 2 MG/ML VIAL (J2060) IV PRN (19:30)
[2016-08-02 19:46] LABS: RETIC HEMOGLOBIN CONTENT CHr 28.3 PG (24-36); RETICULOCYTE % ADVIA2120 2.3 % (0.5-1.5)
[2016-08-02 19:58] LABS: FERRITIN 95 NG/ML (8-252); PERCENT SATURATION 26.9 % (13.2-37.4); TOTAL IRON BINDING CAPACITY 420 UG/DL (250-450)
[2016-08-02] MEDS ORDERED: POTASSIUM CHLORIDE 10 MEQ SR TABLET As Ordered ONE (20:00)
[2016-08-02] MEDS ORDERED: diazePAM 2 MG TAB PO ONE (21:15)
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
--- NOTE | 2016-08-02 21:30 | EDDOCDS ---
Physician Documentation [facility] Name: Marisol Jackson Age: 25 yrs Sex: Female : 1990 Arrival Date: 08/02/2016 Time: 18:00 Bed 2 Private MD: Disposition: 08/02 19:29 Critical Care:. pc Disposition: 08/02/16 19:32 Hospitalization ordered by Mariam Trujillo for Inpatient Admission. Preliminary diagnosis are Suicide attempt, Poisoning by antiallergic and antiemetic drugs, intentional self-harm, Poisoning by selective serotonin and norepinephrine reuptake inhibitors, intentional self-harm, Major depressive disorder, recurrent severe without psychotic features. - Bed requested for PCU. - Status is Inpatient Admission. maren - Condition is Stable. - Problem is new. - Symptoms are unchanged. HPI: 18:23 This 25 yrs old /[place] Female presents to ER with complaints of Overdose. pc 18:23 The history is obtained from the patient, EMS providers, a police booking officer. A reliable pc history and/or examination was not able to be obtained, due to She will admit to what she took as an overdose or when. The patient will not comment on the intention of their statements and/or actions. At their worst, the symptoms were severe. In the emergency department, the symptoms are unchanged. She did not show up for work and was found in her room lethargic, with empty bottles of Benadryl present, up to 41 pills, 50mg each. Her EMR shows she was just released from our [facility] on Lexapro and Wellbutrin. The patient has not experienced similar symptoms in the past. Historical: - Allergies: no known allergies; - Home Meds: 1. Ambien 5 mg oral tab nightly 2. Lexapro 30mg Oral tab once daily 3. Wellbutrin 100 mg oral tab nightly - PMHx: Depression; - PSHx: none; - The history from nurses notes was reviewed: and I agree with what is documented. - Social history: Smoking status: unknown if patient ever smoked tobacco. No barriers to communication noted. - : The pt / caregiver states he / she is not on anticoagulants. Home medication list is obtained from [email or web address] import data. - Exposure Risk Screening:: None identified. - Immunization history:: All immunizations up-to-date. - Family history: Not pertinent. - Social history:: the patient is a non-smoker, the patient does not drink alcohol. 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 The psychiatric and neurological components pc are also addressed in the HPI. Exam: 18:23 General Appearance: alert, no acute distress. pc 18:23 ENT: ear, nose and throat normal, pharynx normal. 18:23 Eyes: pupils equal, round and reactive to light, extraocular motions intact, no nystagmus . 18:23 Neck: The exam reveals no acute abnormalities. ROM is normal and painless. No nuchal rigidity is noted.. 18:23 Respiratory: breathing is even and unlabored, breath sounds are normal. 18:23 Cardiovascular: regular heart rhythm, normal heart sounds, equal and full pulses bilaterally, tachycardia, 130bpm. 18:23 Abdomen: soft, non-tender, no organomegaly, normal bowel sounds. 18:23 Skin: skin color is normal, warm, dry. 18:23 Extremities: The extremities have a grossly normal appearance, are non-tender, without acute ROM abnormalities. 18:23 Neuro: alert, oriented to person, place and time, cranial nerves normal as tested, no motor deficits, no sensory deficits. 18:23 Psych: mood is depressed, non-communicative, affect is flat. Vital Signs: 18:10 BP 161 / 114 (auto/); ld5 18:11 Pulse 129 MON; Pulse Ox 100% ; ld5 18:15 BP 173 / 121 (auto/); ko2 18:15 Pulse 127 MON; Pulse Ox 100% ; ko2 18:19 Resp 20; Temp 97.7; ld5 18:30 BP 181 / 124 (auto/); ko2 18:30 Pulse 130 MON; Pulse Ox 100% ; ko2 18:45 BP 170 / 124 (auto/); ko2 18:45 Pulse 128 MON; Pulse Ox 100% ; ko2 19:00 BP 161 / 115 (auto/); ko2 19:01 Pulse 127 MON; Pulse Ox 100% ; ko2 19:09 Pulse 133 MON; Pulse Ox 100% ; ko2 19:15 BP 168 / 121 (auto/); ko2 19:24 Weight 65.6 kg / 144.62 lbs (M); ko2 20:28 BP 139 / 99; Pulse 128; Resp 16; Temp 99.3(T); Pulse Ox 97% on R/A; Pain 0/10; ko2 21:26 BP 154 / 101; Pulse 113; Resp 18; Pulse Ox 99% ; ko2 MDM: 18:05 Activated Charcoal (1g/kg) Suspension 50 grams PO once ordered. pc 18:05 PSA/PFS to call Nursing Chemist Physical, to enter patient data on [place] Safe [place] if patient pc involuntarily admitted or transferred for SI or HI ordered. 18:05 Call Poison Control ordered. pc 18:05 Telegraphic Typewriter Installer/Pulse Ox/q 15 min VS ordered. pc 18:05 Confirm accurate psychiatric medication list and times of last dosage ordered. pc 18:05 Detain Pt Until Medically/PFS Cleared ordered. pc 18:05 IV Saline Lock ordered. pc 18:06 Acetaminophen Level Ordered. EDMS 18:06 Basic Metabolic Profile Ordered. EDMS 18:06 Complete Blood Count Ordered. EDMS 18:06 Drug Eval Toxicology ED Only Ordered. EDMS 18:06 Ethyl Alcohol (ethanol) Ordered. EDMS 18:06 HCG,Serum Qualitative Ordered. EDMS 18:06 Liver Profile Ordered. EDMS 18:06 Salicylate Level Ordered. EDMS 18:06 Thyroid Stimulating Hormone Ordered. EDMS 18:06 ECG WITH READING ER PHYS+CARDIAG ordered. EDMS 18:21 Test interpretation: EKG. pc 18:23 Differential diagnosis: depression, suicide attempt, intentional drug overdose with pc drug-related tachycardia and HTN. Plan: labs, EKG, Poison Control, PFS eval. 18:33 NS 0.9% 1000 ml IV at 100 mL/hr continuous ordered. pc 18:36 Other consultation: Poison control, instructed to admit patient, due to the possibility pc of a Wellbutrin ingestion. 18:50 Financial registration complete. gjb 18:59 Complete Blood Count Reviewed. pc 18:59 HCG,Serum Qualitative Reviewed. pc 19:06 BED REQUEST+ADM ordered. EDMS 19:22 Acetaminophen Level Reviewed. pc 19:22 Basic Metabolic Profile Reviewed. pc 19:22 Salicylate Level Reviewed. pc 19:22 Drug Eval Toxicology ED Only Reviewed. pc 19:22 Ethyl Alcohol (ethanol) Reviewed. pc 19:22 HCG,Serum Qualitative Reviewed. pc 19:22 Liver Profile Reviewed. pc 19:22 Thyroid Stimulating Hormone Reviewed. pc 19:22 Potassium Chloride Extended Release Tablet 40 mEq PO once ordered. pc 19:29 [place] Safe Act reporting: The patient poses a significant risk to self or others, and pc PSA/PFS has notified the Nursing Chemist Physical and he/she will complete the required data migration consultant. Data reviewed: old medical records, vital signs, nurses notes, EKG(s), lab test results. Test interpretation: LAB - all labs as ordered have been reviewed, interpreted and considered in the overall management of the clinical presentation;. The patient has been re-examined and re-evaluated. There is no appreciated change of the patient's symptoms at this time. Physician consultation: Dr. Mariam Trujillo regarding admission. Disposition: The historical points, examination findings, and any diagnostic results supporting the provided diagnosis, were discussed with the patient or legal guardian. The need for further work-up and/or treatment in the hospital was explained. 19:36 Admission / Observation Status ordered. EDMS 19:36 ELECTROCARDIOGRAM ADULT ordered. EDMS 19:36 REGULAR DIET ordered. EDMS 19:36 URINE TEST Ordered. EDMS 19:37 DRUG EVAL TOXICOLOGY ED ONLY Ordered. EDMS 19:37 URINALYSIS Ordered. EDMS 19:37 CBC WITH DIFFERENTIAL Ordered. EDMS 19:37 COMPLETE COMPHRENSIVE METABOLI Ordered. EDMS 19:37 THYROID STIMULATING HORMONE Ordered. EDMS 19:37 MAGNESIUM LEVEL Ordered. EDMS 19:37 CARDIAC RISK PROFILE Ordered. EDMS 19:37 URINE CULTURE Ordered. EDMS 19:38 PORTABLE CHEST X-RAY Ordered. EDMS 19:40 [facility] [place] was scanned into [employer] and attached to record. gjb 19:45 RETICULOCYTE COUNT Ordered. EDMS 19:47 FERRITIN Ordered. EDMS 19:48 TOTAL IRON BINDING CAPACIT Ordered. EDMS 19:51 [place] ordered. pc 21:10 ELECTROCARDIOGRAM ADULT ordered. EDMS 21:10 ELECTROCARDIOGRAM ADULT ordered. EDMS 21:11 CARDIAC MARKER PANEL Ordered. EDMS 21:13 CARDIAC MARKER PANEL Ordered. EDMS EC:21 Rate is 125 beats/min. Rhythm is regular, Sinus tachycardia. QRS [place] is Normal. [place] pc interval is normal. QRS interval is normal. QT interval is normal. No Q waves. T waves are Normal. ST Segment is depressed in leads V2, V3, V4, 1-2mm. Clinical impression: Sinus tachycardia and Rate related ST changes. Administered Medications: 18:34 Drug: NS 0.9% 1000 ml [sodium chloride 0.9 % intravenous solution] Route: IV; Rate: 100 bcj mL/hr; Site: left antecubital; 18:58 Not Given (Physician Discretion; provider dis): Activated Charcoal (1g/kg) Suspension ld5 50 grams PO once 20:23 Drug: Potassium Chloride 40 mEq [potassium chloride ER 10 mEq tablet,extended release ko2 (4 tabs)] Route: PO; Critical Care Time: 19:29 Critical care time: Bedside Care: 25 minutes, Consultation: 10 minutes, Family pc Intervention: 10 minutes. Total time: 45 minutes Signatures: Dispatcher [employer] EDMS Abundio Loza MD MD pc Johnson, Bruce, RN RN anaj Jeyson, Keren Alaniz, RN RN Ashley Ellis, Tool And Die Technician Unit ml3 Batool Guerrero RN RN sls2 Lexy Woods Laura RN ld5 Victorina Bergeron RN ko2 The chart was reviewed and I authenticate all verbal orders and agree with the evaluation and treatment provided.Corrections: (The following items were deleted from the chart) 18:33 18:05 Consult PFS/PSA/Order Takers Supervisor: Patient's case requires discussion with on-call pc Psychiatrist ordered. pc 19:45 19:40 RETICULOCYTE COUNT ordered. EDMS EDMS 19:46 19:40 IRON (FE) ordered. EDMS EDMS 19:46 19:40 TOTAL IRON BINDING CAPACIT ordered. EDMS EDMS 19:46 19:40 FERRITIN ordered. EDMS EDMS 21:13 21:06 CARDIAC MARKER PANEL ordered. EDMS EDMS 21:14 21:11 CARDIAC MARKER PANEL ordered. EDMS EDMS Attachments: 19:40 [facility] Payment Agreement gjb [id number]
--- NOTE | 2016-08-02 21:32 | EDDOCDS ---
Nurse's Notes [facility] Name: Marisol Jackson Age: 25 yrs Sex: Female : 1990 Arrival Date: 08/02/2016 Time: 18:00 Bed 2 Private MD: Diagnosis: Suicide attempt;Poisoning by antiallergic and antiemetic drugs, intentional self-harm;Poisoning by selective serotonin and norepinephrine reuptake inhibitors, intentional self-harm;Major depressive disorder, recurrent severe without psychotic features Presentation: 08/02 18:20 Presenting complaint: EMS states: may have taken OD of 30 to 40 benadryl 50mg between j 1500 and 1700 today. found ETOH in room - unsure if she has drank any. had rx's for Lexapro and Wellbutrin at home - unsure if she took any. pt speaking only single words sentances, shaky/tremolous on arrival. Adult Sepsis Screening: Patient has new or worsening altered mentation (1 point). Patient's respiratory rate is less than 22. Systolic blood pressure is greater than 100. Patient has a qSOFA score of 1- Negative Sepsis Screen. Mental Health Triage Level: Level 3: The patient presents for care as a result of a suicide attempt. Suicide/Homicide risk assessment- The patient admits to and/or has been reported to be having suicidal ideations. The patient reports that he/she has been admitted to an inpatient mental health facility in the last 30 days. The patient reports that he/she has a recent or current history of substance abuse. The patient reports that he/she has a prior history of suicide attempt and/or organized plan. The patient reports that he/she has not experienced a significant life altering event in the last 30 days. The patient reports that he/she lacks adequate social support. The patient reports he/she has no significant chronic medical condition(s). 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 Transition of care: patient was not received from another setting of care. Care prior to arrival: See EMS report. Saline lock initiated. Oxygen administered by EMS. 18:20 Acuity: RAHUL Level 2 [facility] 18:20 Method Of Arrival: Ambulance [facility] Triage Assessment: 18:27 General: Appears distressed, Behavior is cooperative. Pain: Denies pain. HIV screening [facility] NA for this visit Offered previously. Neurological: Level of Consciousness is awake, Moves all extremities. Speech is slurred, Facial symmetry appears normal, Pupils are pinpoint. Cardiovascular: Rhythm is sinus tachycardia. Respiratory: Airway is patent Respiratory effort is even, unlabored, Respiratory pattern is regular. Derm: Skin is pink, warm & dry. TEEN COUNSELOR: 19:25 LMP 08/02/2016 ko2 Historical: - Allergies: no known allergies; - Home Meds: 1. Ambien 5 mg oral tab nightly 2. Lexapro 30mg Oral tab once daily 3. Wellbutrin 100 mg oral tab nightly - PMHx: Depression; - PSHx: none; - The history from nurses notes was reviewed: and I agree with what is documented. - Social history: Smoking status: unknown if patient ever smoked tobacco. No barriers to communication noted. - : The pt / caregiver states he / she is not on anticoagulants. Home medication list is obtained from [employer] import data. - Exposure Risk Screening:: None identified. - Immunization history:: All immunizations up-to-date. - Family history: Not pertinent. - Social history:: the patient is a non-smoker, the patient does not drink alcohol. Screenin:28 Screening information is obtained from the patient. Fall risk: No risks identified. ko2 Assistance ADL's: requires no assistance with activities of daily living. Abuse/DV Screen: The patient / caregiver reports he/she is: not in a situation that causes fear, pain or injury. Nutritional screening: No deficits noted. Advance Directives: Unable to assess Advance Directive status due to pt condition. Assessment: 18:25 General: tampon removed, by this junior underwriter,when placed on bedpan. srm 18:42 General: Pt spilled charcoal on blanket. When asked if she would drink any more pt ld5 shook head. Provider aware and reports no need to continue with charcoal. 18:56 General: Pt up to commode to provide urine specimen. Difficulty following commands. ld5 escorts at bedside. 19:08 General: Appears in no apparent distress, Behavior is anxious, restless. Pain: Denies ko2 pain. Neurological: Level of Consciousness is awake. Cardiovascular: Rhythm is sinus tachycardia No ectopy. Respiratory: Airway is patent Respiratory effort is even, unlabored, Respiratory pattern is regular, symmetrical. GI: Bowel sounds present X 4 quads. Derm: Skin is normal. Musculoskeletal: Range of motion intact in all extremities. 20:00 General: Appears in no apparent distress, Behavior is anxious. Pain: Denies pain. ko2 Neurological: Level of Consciousness is awake. Respiratory: Airway is patent Respiratory effort is even, unlabored, Respiratory pattern is regular, symmetrical. Derm: Skin is normal. 21:00 General: Appears in no apparent distress, Behavior is cooperative, restless. Pain: ko2 Denies pain. Neurological: Level of Consciousness is awake. Cardiovascular: Rhythm is sinus tachycardia. Respiratory: Airway is patent Respiratory effort is even, unlabored, Respiratory pattern is regular, symmetrical. Derm: Skin is normal. Vital Signs: 18:10 BP 161 / 114 (auto/); ld5 18:11 Pulse 129 MON; Pulse Ox 100% ; ld5 18:15 BP 173 / 121 (auto/); ko2 18:15 Pulse 127 MON; Pulse Ox 100% ; ko2 18:19 Resp 20; Temp 97.7; ld5 18:30 BP 181 / 124 (auto/); ko2 18:30 Pulse 130 MON; Pulse Ox 100% ; ko2 18:45 BP 170 / 124 (auto/); ko2 18:45 Pulse 128 MON; Pulse Ox 100% ; ko2 19:00 BP 161 / 115 (auto/); ko2 19:01 Pulse 127 MON; Pulse Ox 100% ; ko2 19:09 Pulse 133 MON; Pulse Ox 100% ; ko2 19:15 BP 168 / 121 (auto/); ko2 19:24 Weight 65.6 kg (M); ko2 20:28 BP 139 / 99; Pulse 128; Resp 16; Temp 99.3(T); Pulse Ox 97% on R/A; Pain 0/10; ko2 21:26 BP 154 / 101; Pulse 113; Resp 18; Pulse Ox 99% ; ko2 Vitals: 18:17 Log In Time N/A - ambulance arrival. ld5 18:29 Refer to monitor trend for complete vital signs trends. [facility] ED Course: 18:01 Patient visited by Kianna Crews, Tunnel Worker. deg 18:01 Patient moved to Waiting deg 18:01 Patient moved to 2 deg 18:04 Abundio Loza MD is Attending Physician. pc 18:16 Acetaminophen Level Sent. ld5 18:16 Basic Metabolic Profile Sent. ld5 18:16 Complete Blood Count Sent. ld5 18:16 Ethyl Alcohol (ethanol) Sent. ld5 18:16 HCG,Serum Qualitative Sent. ld5 18:16 Liver Profile Sent. ld5 18:16 Salicylate Level Sent. ld5 18:16 Thyroid Stimulating Hormone Sent. ld5 18:18 Patient visited by Abundio Loza MD. pc 18:21 EKG done. (by ED staff). Reviewed by Abundio Loza MD. nb2 18:22 Patient visited by Patricia Castellanos. nb2 18:26 Triage Initiated bcj 18:29 Appears restless. awaiting re-evaluation by ER physician. bcj 18:29 The patient / caregiver is instructed regarding the plan of care and ED course. bcj Accompanied by Law Enforcement, Patient has correct armband on for positive identification. Placed in psych safe attire. Bed in low position. Side rails up X2. Adult w/ patient. commis chef on. Pulse ox on. NIBP on. 18:29 Poison Control notified at 18:15 recommendations reviewed with aware. bcj 18:29 Maintain field IV. Site clean & dry. Gauge & site: 18ga LAC. bcj 18:31 Patient visited by Cory Erazo RN. bcj 18:54 Assisted to bedside commode. ruperto 18:55 Drug Eval Toxicology ED Only Sent. ld5 18:55 Urine collected. Clean catch specimen. Urine specimen sent to lab. ld5 18:56 Patient visited by Reena Whelan,WINTER. ld5 19:07 Victorina Bergeron,RN is Primary Nurse. ko2 19:10 Patient visited by Victorina Bergeron,WINTER. ko2 19:32 Mariam Trujillo is Hospitalizing Provider. pc 19:40 [facility] Payment Agreement was scanned into [employer] and attached to record. gjb 21:14 No procedures done that require assistance. Goodson cath inserted 16 Fr. Balloon ko2 inflated. To gravity drainage. returned clear yellow urine. Administered Medications: 18:34 Drug: NS 0.9% 1000 ml [sodium chloride 0.9 % intravenous solution] Route: IV; Rate: 100 bcj mL/hr; Site: left antecubital; 18:58 Not Given (Physician Discretion; provider dis): Activated Charcoal (1g/kg) Suspension ld5 50 grams PO once 20:23 Drug: Potassium Chloride 40 mEq [potassium chloride ER 10 mEq tablet,extended release ko2 (4 tabs)] Route: PO; Order Results: Lab Order: Acetaminophen Level; SPEC'M 08/02/16 18:15 Test: ACETAMINOPHEN LEVEL; Value: < 2.0; Range: 10.0-30.0; Abnormal: Below low normal; Units: UG/ML; Status: F Lab Order: Basic Metabolic Profile; SPEC'M 08/02/16 18:15 Test: GLUCOSE, FASTING; Value: 99; Range: 70-105; Units: MG/DL; Status: F Test: BLOOD UREA NITROGEN; Value: 14; Range: 7-18; Units: MG/DL; Status: F Test: CREATININE FOR GFR; Value: 0.84; Range: 0.55-1.02; Units: MG/DL; Status: F Test: SODIUM LEVEL; Range: 136-145; Units: MEQ/L; Status: I Test: POTASSIUM SERUM; Range: 3.5-5.1; Units: MEQ/L; Status: I Test: CHLORIDE LEVEL; Range: 98-107; Units: MEQ/L; Status: I Test: CARBON DIOXIDE LEVEL; Range: 21-32; Units: MEQ/L; Status: I Test: ANION GAP; Range: 8-16; Units: MEQ/L; Status: I Test: CALCIUM LEVEL; Range: 8.5-10.1; Units: MG/DL; Status: I Test: GLOMERULAR FILTRATION RATE; Value: > 60.0; Range: >60; Status: F Test: SODIUM LEVEL; Value: 137; Range: 136-145; Units: MEQ/L; Status: F Test: POTASSIUM SERUM; Value: 3.1; Range: 3.5-5.1; Abnormal: Below low normal; Units: MEQ/L; Status: F Test: CHLORIDE LEVEL; Value: 99; Range: 98-107; Units: MEQ/L; Status: F Test: CARBON DIOXIDE LEVEL; Value: 24; Range: 21-32; Units: MEQ/L; Status: F Test: ANION GAP; Value: 14; Range: 8-16; Units: MEQ/L; Status: F Test: CALCIUM LEVEL; Value: 7.8; Range: 8.5-10.1; Abnormal: Below low normal; Units: MG/DL; Status: F Test Note: ; Units are mL/min/1.73 m2 Chronic Kidney Disease Staging per NKF: Stage I & II GFR >=60 Normal to Mildly Decreased Stage III GFR 30-59 Moderately Decreased Stage IV GFR 15-29 Severely Decreased Stage V GFR <15 Very Little GFR Left ESRD GFR <15 on MOCK UP ASSEMBLER Lab Order: Complete Blood Count; SPEC'M 08/02/16 18:15 Test: WHITE BLOOD COUNT; Value: 13.3; Range: 4.0-10.0; Abnormal: Above high normal; Units: K/mm3; Status: F Test: RED BLOOD COUNT; Value: 4.63; Range: 4.00-5.40; Units: M/mm3; Status: F Test: HEMOGLOBIN; Value: 12.3; Range: 12.0-16.0; Units: g/dl; Status: F Test: HEMATOCRIT; Value: 36.8; Range: 36.0-47.0; Units: %; Status: F Test: MEAN CORPUSCULAR VOLUME; Value: 79.4; Range: 80.0-96.0; Abnormal: Below low normal; Units: fl; Status: F Test: MEAN CORPUSCULAR HEMOGLOBIN; Value: 26.5; Range: 27.0-33.0; Abnormal: Below low normal; Units: pg; Status: F Test: MEAN CORPUSCULAR HGB CONC; Value: 33.4; Range: 32.0-36.5; Units: g/dl; Status: F Test: RED CELL DISTRIBUTION WIDTH; Value: 12.7; Range: 11.5-14.5; Units: %; Status: F Test: PLATELET COUNT, AUTOMATED; Value: 294; Range: 150-450; Units: k/mm3; Status: F Lab Order: Drug Eval Toxicology ED Only; SPEC'M 08/02/16 18:54 Test: AMPHETAMINES LEVEL URINE; Value: NEGATIVE; Range: NEGATIVE; Status: F Test: BARBITURATES URINE; Value: NEGATIVE; Range: NEGATIVE; Status: F Test: BENZODIAZEPINES URINE; Value: NEGATIVE; Range: NEGATIVE; Status: F Test: CANNABINOIDS URINE; Value: NEGATIVE; Range: NEGATIVE; Status: F Test: COCAINE METABOLITE URINE; Value: NEGATIVE; Range: NEGATIVE; Status: F Test: METHADONE URINE; Value: NEGATIVE; Range: NEGATIVE; Status: F Test: OPIATES URINE; Value: NEGATIVE; Range: NEGATIVE; Status: F Test: TRICYCLIC ANTIDEPRESS URINE; Value: NEGATIVE; Range: NEGATIVE; Status: F Test Note: ; ALL PRESUMPTIVE POSITIVE FINDINGS ARE UNCONFIRMED NORMAL VALUES THRESHOLD IN NG/ML AMPHETAMINES 1000 METHAMPHETAMINES 1000 BARBITURATES 300 BENZODIAZEPINES 300 CANNABINOIDS (THC) 50 COCAINE METABOLITE 300 METHADONE 300 OPIATES 300 PHENCYCLIDINE 25 TRICYCLIC ANTIDEPRESSANTS 1000 RESULTS ARE FOR MEDICAL PURPOSES ONLY. ALL URINE SPECIMENS WILL BE SAVED FOR 3 DAYS. IF CONFIRMATION OF A PRESUMPTIVE POSTIVE SCREEN RESULT IS DESIRED, CALL CHEMISTRY ([phone]) AND REQUEST URINE TO BE SENT TO REFERENCE LAB. FOR A LIST OF CLOSELY RELATED COMPOUNDS PLEASE CALL THE LAB. Lab Order: Ethyl Alcohol (ethanol); SPEC' 08/02/16 18:15 Test: ETHYL ALCOHOL (ETHANOL); Value: < 0.003; Range: 0.000-0.010; Units: %; Status: F Lab Order: HCG,Serum Qualitative; SPEC' 08/02/16 18:15 Test: HCG, SERUM QUALITATIVE; Value: NEGATIVE; Range: NEGATIVE; Status: F Lab Order: Liver Profile; [facility]' 08/02/16 18:15 Test: AST/SGOT; Value: 16; Range: 15-37; Units: U/L; Status: F Test: ALT/SGPT; Value: 20; Range: 12-78; Units: U/L; Status: F Test: ALKALINE PHOSPHATASE; Value: 49; Range: 45-117; Units: U/L; Status: F Test: BILIRUBIN,TOTAL; Value: 0.4; Range: 0.2-1.0; Units: MG/DL; Status: F Test: BILIRUBIN,DIRECT; Value: < 0.1; Range: 0.0-0.2; Units: MG/DL; Status: F Test: TOTAL PROTEIN; Value: 7.5; Range: 6.4-8.2; Units: GM/DL; Status: F Test: ALBUMIN; Value: 4.0; Range: 3.2-5.2; Units: GM/DL; Status: F Test: ALBUMIN/GLOBULIN RATIO; Value: 1.14; Range: 1.00-1.93; Status: F Lab Order: Salicylate Level; 08/02/16 18:15 Test: SALICYLATE LEVEL; Value: < 1.7; Range: 5.0-30.0; Abnormal: Below low normal; Units: MG/DL; Status: F Lab Order: Thyroid Stimulating Hormone; 08/02/16 18:15 Test: THYROID STIMULATING HORMONE; Value: 3.640; Range: 0.358-3.740; Units: uIU/ML; Status: F Lab Order: RETICULOCYTE COUNT; 08/02/16 18:15 Test: RETICULOCYTE % [id number]; Value: 2.30; Range: 0.5-1.5; Abnormal: Above high normal; Units: %; Status: F Test: RETICULOCYTE ABSOLUTE [id number]; Value: 111; Range: 17-77; Abnormal: Above high normal; Units: x10(9)/L; Status: F Test: RETIC HEMOGLOBIN CONTENT CHr; Value: 28.3; Range: 24-36; Units: PG; Status: F Lab Order: FERRITIN; 08/02/16 18:15 Test: FERRITIN; Value: 95; Range: 8-252; Units: NG/ML; Status: F Lab Order: TOTAL IRON BINDING CAPACIT; 08/02/16 18:15 Test: IRON (FE); Value: 113; Range: 50-170; Units: UG/DL; Status: F Test: TOTAL IRON BINDING CAPACITY; Value: 420; Range: 250-450; Units: UG/DL; Status: F Test: PERCENT SATURATION; Value: 26.9; Range: 13.2-37.4; Units: %; Status: F Lab Order: CARDIAC MARKER PANEL; 08/02/16 18:15 Test: CPK CREATINE PHOSPHOKINASE; Range: 26-192; Units: U/L; Status: I Test: CK-MB VALUE MASS; Range: 0.0-3.6; Units: NG/ML; Status: I Test: MB/CK RELATIVE INDEX; Range: < OR =4; Status: I Test: TROPONIN I; Range: < 0.10; Units: NG/ML; Status: I Outcome: 19:32 Decision to Hospitalize by Provider. pc 21:16 Discharge Assessment: Patient awake, alert and oriented x 3. No cognitive and/or ko2 functional deficits noted. Patient verbalized understanding of disposition instructions. patient administered narcotics - no. The following High Risk Discharge criteria are identified: None. Admitted to PCU accompanied by nurse, accompanied by tech, via stretcher, on monitor, with chart. Condition: stable. No special radiology studies were completed. Admission hand-off: Report Faxed Fax receipt verified by [facility]. Property :Personal belongings accompany Pt. 21:29 Patient left the ED. maren Signatures: Abundio Loza MD MD pc Murray, Denise, Tunnel Worker Unit deg Cory Erazo, RN RN Paloma Main RN RN marco Benítez, Keren Alaniz, RN RN Reena KingsleyRN RN ld5 Katt Mir, Victorina Kamara RN RN Lexy Ríos Nicole nb2 PAUL
[2016-08-02 21:40] VITALS: BP 160/98
[2016-08-02] MEDS: HEPARIN SOD (PORCINE) 5000 UNITS/ML VIAL SC SCH (22:00)
[2016-08-02] MEDS: NS 1,000 ML IV SCH (22:08)
[2016-08-03] VITALS: BP 131/86
[2016-08-03 04:00] VITALS: BP 110/75
[2016-08-03] MEDS: NS 1,000 ML IV SCH (04:32)
[2016-08-03] MEDS: HEPARIN SOD (PORCINE) 5000 UNITS/ML VIAL SC SCH ×2 (06:00→13:49)
[2016-08-03 06:13] LABS: BASO % 0.2 % (0.0-1.0); EOS # 0.1 K/mm3 (0.0-0.50); EOS % 1.1 % (0.0-3.0); LARGE UNSTAINED CELL # 0.2 K/mm3 (0.0-0.4); LARGE UNSTAINED CELL % 1.9 % (0.0-4.0); LYMPH # 2.1 K/mm3 (1.5-6.5); LYMPH % 26.7 % (24.0-44.0); MEAN CORPUSCULAR HEMOGLOBIN 25.9 pg (27.0-33.0); MEAN CORPUSCULAR HGB CONC 32.2 g/dl (32.0-36.5); MEAN CORPUSCULAR VOLUME 80.6 fl (80.0-96.0); MONO # 0.4 K/mm3 (0.0-0.8); MONO % 4.6 % (0.0-5.0); NEUTROPHILS # 5.1 K/mm3 (1.8-7.7); NEUTROPHILS % 65.5 % (36.0-66.0); PLATELET COUNT, AUTOMATED 271 k/mm3 (150-450); RED CELL DISTRIBUTION WIDTH 12.7 % (11.5-14.5); WHITE BLOOD COUNT 7.8 K/mm3 (4.0-10.0)
[2016-08-03 06:33] LABS: ALBUMIN 3.3 GM/DL (3.2-5.2); ALBUMIN/GLOBULIN RATIO 1.14 (1.00-1.93); ALKALINE PHOSPHATASE 41 U/L (45-117); ALT/SGPT 15 U/L (12-78); ANION GAP 8 MEQ/L (8-16); AST/SGOT 13 U/L (15-37); BLOOD UREA NITROGEN 8 MG/DL (7-18); CALCIUM LEVEL 7.2 MG/DL (8.5-10.1); CARBON DIOXIDE LEVEL 26 MEQ/L (21-32); CHLORIDE LEVEL 109 MEQ/L (98-107); CHOLESTEROL LEVEL 188 MG/DL (<200); CREATININE FOR GFR 0.69 MG/DL (0.55-1.02); GLOMERULAR FILTRATION RATE > 60.0 (>60); GLUCOSE, FASTING 100 MG/DL (70-105); MAGNESIUM LEVEL 2.2 MG/DL (1.8-2.4); POTASSIUM SERUM 3.5 MEQ/L (3.5-5.1); SODIUM LEVEL 143 MEQ/L (136-145); TOTAL PROTEIN 6.2 GM/DL (6.4-8.2); TRIGLYCERIDES LEVEL 127 MG/DL (<150)
[2016-08-03 06:38] LABS: BILIRUBIN,TOTAL 0.6 MG/DL (0.2-1.0)
[2016-08-03 08:00] VITALS: BP 109/69
--- NOTE | 2016-08-03 09:20 | REP ---
PORTABLE CHEST: AP portable view of the chest is performed. There is no acute infiltrate or pulmonary edema. Cardiomediastinal silhouette appears unremarkable. Visualized osseous structures are intact. IMPRESSION: No acute infiltrate. Signed by Bob Bush MD 08/03/2016 04:50 P
--- NOTE | 2016-08-03 12:12 | ECGEPIP ---
Stationary ECG Study [facility] Test Date: 2016-08-02 Pat Name: ROSHAN JONES Department: Room: [place] [address] Gender: F Vulcanizer: : 1990 Requested By: RAJI Cooley Order Number: [id number] Reading MD: Koffi Simon Measurements Intervals [place] Rate: 98 P: 54 IA: 138 QRS: 64 QRSD: 82 T: -7 QT: 380 QTc: 486 Interpretive Statements SINUS RHYTHM Prolonged QTc Nonspecific ST-T wave abnormalities Electronically Signed On 08-03-2016 12:12:01 EST by Koffi Simon
--- NOTE | 2016-08-03 16:40 | DSES ---
DATE OF ADMISSION: 08/02/2016 DATE OF DISCHARGE: 08/03/2016 PRIMARY CARE PROVIDER: None listed. CONSULTANTS: Dr. Lorenzana PROCEDURES: None. COMPLICATIONS: None. ADMISSION/DISCHARGE DIAGNOSES: 1. Intentional overdose/suicide attempt with Benadryl ingestion. 2. Major depression with previous suicide attempts. 3. History of insomnia. 4. Tobacco use. Encourage smoking cessation. 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 Had been in an inpatient mental health 07/22/2016 through 07/27/2016. At discharge she was continued on Lexapro and Wellbutrin. Was scheduled for routine followups. At her follow-up appointment today around 3 o'clock she did appear to be lethargic. Had admitted to taking 30-40 tablets of Benadryl between 1500 and 1700. Alcohol was found in her room but was unsure whether she had drank any. Prescriptions of Lexapro and Wellbutrin were at home, and it was unclear whether she had taken these as well. Workup in the emergency department, including calling poison control consult, recommended overnight admission. Her EKG remained unchanged with no prolonged QT. She did not have any abnormalities on her telemetry. Urine drug screen was negative. Salicylate was less than 1.7. Hospitalist was called for admission for Benadryl overdose, suicide attempt. Nonetheless, she did do well overnight. In the morning she did appear to be alert without any specific complaints. No headache, lightheaded, dizziness. No chest pain, shortness of breath. No nausea or vomiting. PHYSICAL EXAMINATION: Temperature is 98.1, pulse 78, respiratory rate 18, blood pressure (BP) 110/75, SPO2 is 98% on room air. GENERAL: The patient appears to be in no acute distress. She is alert, oriented. HEENT: Unremarkable. LUNGS: Clear. HEART: Regular rate and rhythm. ABDOMEN: Soft. EXTREMITIES: No edema. No calf tenderness. LABORATORY DATA: White count 7.8, hemoglobin 10.6, and platelets are 271,000. Sodium 143, potassium 3.5, chloride 109, bicarbonate 26, anion gap 8, BUN is 8, creatinine 0.69, glucose 100, magnesium 2.2. AST was 13, ALT 15, alkaline phosphatase 41. CK is 89, troponin is less than 0.02. Albumin is 3.3, TSH 2.610. Urine culture pending. Chest x-ray showed no acute infiltrate. DISCHARGE CONDITION: Good. DISPOSITION: The patient will need to be evaluated and likely be admitted to inpatient mental health for involuntary psychiatric treatment. DISCHARGE MEDICATIONS: None from a medical standpoint. Will defer any psychotropic medications to psychiatrist. DISCHARGE INSTRUCTIONS: She is medically stable from a medical standpoint. No issues seen on EKG or on telemetry. She is now at 24 hours without any issues, and I have requested Dr. Lorenzana to see the patient on consult, and if he feels that she is appropriate, she is okay to be discharged to inpatient mental health for involuntary treatment. She may continue with diet as tolerated. Activity as tolerated, and should she should keep appropriate outpatient appointments once discharged. Discharge took approximately 35 minutes.
[2016-08-03 18:01] VITALS: BP 115/69
--- NOTE | 2016-08-03 22:23 | ECGEPIP ---
Stationary ECG Study [facility] Test Date: 2016-08-03 Pat Name: ROSHAN JONES Department: Room: [place] [address] Gender: F All Around Presser: TOBIN : 1990 Requested By: RAJI Cooley Order Number: [id number] Reading MD: Koffi Simon Measurements Intervals [place] Rate: 87 P: 47 AL: 144 QRS: 57 QRSD: 84 T: 0 QT: 420 QTc: 508 Interpretive Statements SINUS RHYTHM Prolonged QTc Nonspecific ST-T wave abnormalities Less artifact than tracing done 08-02-16 Electronically Signed On 08-03-2016 22:23:37 EST by Koffi Simon
--- NOTE | 2016-08-04 10:00 | ECGEPIP ---
Stationary ECG Study [facility] Test Date: 2016-08-02 Pat Name: ROSHAN JONES Department: Room: [place] [address] Gender: F Clerk Guide: elias : 1990 Requested By: Abundio Chaney Order Number: [id number] Reading MD: Abundio Loza Measurements Intervals [place] Rate: 125 P: 62 GA: 141 QRS: 63 QRSD: 84 T: 7 QT: 407 QTc: 587 Interpretive Statements SINUS TACHYCARDIA RATE-RELATED ST DEVIATION AND MODERATE T-WAVE ABNORMALITY Electronically Signed On 08-04-2016 10:00:28 EST by Abundio Loza
--- NOTE | 2016-08-04 22:31 | EDDOCDS ---
Physician Documentation [facility] Name: Marisol Jackson Age: 25 yrs Sex: Female : 1990 Arrival Date: 08/02/2016 Time: 18:00 Bed 2 Private MD: Disposition: 08/02 19:29 Critical Care:. pc Disposition: 08/02/16 19:32 Hospitalization ordered by Mariam Trujillo for Inpatient Admission. Preliminary diagnosis are Suicide attempt, Poisoning by antiallergic and antiemetic drugs, intentional self-harm, Poisoning by selective serotonin and norepinephrine reuptake inhibitors, intentional self-harm, Major depressive disorder, recurrent severe without psychotic features. - Bed requested for PCU. - Status is Inpatient Admission. maren - Condition is Stable. - Problem is new. - Symptoms are unchanged. HPI: 18:23 This 25 yrs old /[place] Female presents to ER with complaints of Overdose. 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 A reliable pc history and/or examination was not able to be obtained, due to She will admit to what she took as an overdose or when. The patient will not comment on the intention of their statements and/or actions. At their worst, the symptoms were severe. In the emergency department, the symptoms are unchanged. She did not show up for work and was found in her room lethargic, with empty bottles of Benadryl present, up to 41 pills, 50mg each. Her EMR shows she was just released from our [facility] on Lexapro and Wellbutrin. The patient has not experienced similar symptoms in the past. Historical: - Allergies: no known allergies; - Home Meds: 1. Ambien 5 mg oral tab nightly 2. Lexapro 30mg Oral tab once daily 3. Wellbutrin 100 mg oral tab nightly - PMHx: Depression; - PSHx: none; - The history from nurses notes was reviewed: and I agree with what is documented. - Social history: Smoking status: unknown if patient ever smoked tobacco. No barriers to communication noted. - : The pt / caregiver states he / she is not on anticoagulants. Home medication list is obtained from [employer] import data. - Exposure Risk Screening:: None identified. - Immunization history:: All immunizations up-to-date. - Family history: Not pertinent. - Social history:: the patient is a non-smoker, the patient does not drink alcohol. 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 The psychiatric and neurological components pc are also addressed in the HPI. Exam: 18:23 General Appearance: alert, no acute distress. pc 18:23 ENT: ear, nose and throat normal, pharynx normal. 18:23 Eyes: pupils equal, round and reactive to light, extraocular motions intact, no nystagmus . 18:23 Neck: The exam reveals no acute abnormalities. ROM is normal and painless. No nuchal rigidity is noted.. 18:23 Respiratory: breathing is even and unlabored, breath sounds are normal. 18:23 Cardiovascular: regular heart rhythm, normal heart sounds, equal and full pulses bilaterally, tachycardia, 130bpm. 18:23 Abdomen: soft, non-tender, no organomegaly, normal bowel sounds. 18:23 Skin: skin color is normal, warm, dry. 18:23 Extremities: The extremities have a grossly normal appearance, are non-tender, without acute ROM abnormalities. 18:23 Neuro: alert, oriented to person, place and time, cranial nerves normal as tested, no motor deficits, no sensory deficits. 18:23 Psych: mood is depressed, non-communicative, affect is flat. Vital Signs: 18:10 BP 161 / 114 (auto/); ld5 18:11 Pulse 129 MON; Pulse Ox 100% ; ld5 18:15 BP 173 / 121 (auto/); ko2 18:15 Pulse 127 MON; Pulse Ox 100% ; ko2 18:19 Resp 20; Temp 97.7; ld5 18:30 BP 181 / 124 (auto/); ko2 18:30 Pulse 130 MON; Pulse Ox 100% ; ko2 18:45 BP 170 / 124 (auto/); ko2 18:45 Pulse 128 MON; Pulse Ox 100% ; ko2 19:00 BP 161 / 115 (auto/); ko2 19:01 Pulse 127 MON; Pulse Ox 100% ; ko2 19:09 Pulse 133 MON; Pulse Ox 100% ; ko2 19:15 BP 168 / 121 (auto/); ko2 19:24 Weight 65.6 kg / 144.62 lbs (M); ko2 20:28 BP 139 / 99; Pulse 128; Resp 16; Temp 99.3(T); Pulse Ox 97% on R/A; Pain 0/10; ko2 21:26 BP 154 / 101; Pulse 113; Resp 18; Pulse Ox 99% ; ko2 MDM: 18:05 Activated Charcoal (1g/kg) Suspension 50 grams PO once ordered. pc 18:05 PSA/PFS to call Nursing Marine Engine Mechanic, to enter patient data on [place] Safe [place] if patient pc involuntarily admitted or transferred for SI or HI ordered. 18:05 Call Poison Control ordered. pc 18:05 Retail Management Keyholder/Pulse Ox/q 15 min VS ordered. pc 18:05 Confirm accurate psychiatric medication list and times of last dosage ordered. pc 18:05 Detain Pt Until Medically/PFS Cleared ordered. pc 18:05 IV Saline Lock ordered. pc 18:06 Acetaminophen Level Ordered. EDMS 18:06 Basic Metabolic Profile Ordered. EDMS 18:06 Complete Blood Count Ordered. EDMS 18:06 Drug Eval Toxicology ED Only Ordered. EDMS 18:06 Ethyl Alcohol (ethanol) Ordered. EDMS 18:06 HCG,Serum Qualitative Ordered. EDMS 18:06 Liver Profile Ordered. EDMS 18:06 Salicylate Level Ordered. EDMS 18:06 Thyroid Stimulating Hormone Ordered. EDMS 18:06 ECG WITH READING ER PHYS+CARDIAG ordered. EDMS 18:21 Test interpretation: EKG. pc 18:23 Differential diagnosis: depression, suicide attempt, intentional drug overdose with pc drug-related tachycardia and HTN. Plan: labs, EKG, Poison Control, PFS eval. 18:33 NS 0.9% 1000 ml IV at 100 mL/hr continuous ordered. pc 18:36 Other consultation: Poison control, instructed to admit patient, due to the possibility pc of a Wellbutrin ingestion. 18:50 Financial registration complete. gjb 18:59 Complete Blood Count Reviewed. pc 18:59 HCG,Serum Qualitative Reviewed. pc 19:06 BED REQUEST+ADM ordered. EDMS 19:22 Acetaminophen Level Reviewed. pc 19:22 Basic Metabolic Profile Reviewed. pc 19:22 Salicylate Level Reviewed. pc 19:22 Drug Eval Toxicology ED Only Reviewed. pc 19:22 Ethyl Alcohol (ethanol) Reviewed. pc 19:22 HCG,Serum Qualitative Reviewed. pc 19:22 Liver Profile Reviewed. pc 19:22 Thyroid Stimulating Hormone Reviewed. pc 19:22 Potassium Chloride Extended Release Tablet 40 mEq PO once ordered. pc 19:29 [place] Safe Act reporting: The patient poses a significant risk to self or others, and pc PSA/PFS has notified the Nursing Marine Engine Mechanic and he/she will complete the required director oracle database. Data reviewed: old medical records, vital signs, nurses notes, EKG(s), lab test results. Test interpretation: LAB - all labs as ordered have been reviewed, interpreted and considered in the overall management of the clinical presentation;. The patient has been re-examined and re-evaluated. There is no appreciated change of the patient's symptoms at this time. Physician consultation: Dr. Mariam Trujillo regarding admission. Disposition: The historical points, examination findings, and any diagnostic results supporting the provided diagnosis, were discussed with the patient or legal guardian. The need for further work-up and/or treatment in the hospital was explained. 19:36 Admission / Observation Status ordered. EDMS 19:36 ELECTROCARDIOGRAM ADULT ordered. EDMS 19:36 REGULAR DIET ordered. EDMS 19:36 URINE TEST Ordered. EDMS 19:37 DRUG EVAL TOXICOLOGY ED ONLY Ordered. EDMS 19:37 URINALYSIS Ordered. EDMS 19:37 CBC WITH DIFFERENTIAL Ordered. EDMS 19:37 COMPLETE COMPHRENSIVE METABOLI Ordered. EDMS 19:37 THYROID STIMULATING HORMONE Ordered. EDMS 19:37 MAGNESIUM LEVEL Ordered. EDMS 19:37 CARDIAC RISK PROFILE Ordered. EDMS 19:37 URINE CULTURE Ordered. EDMS 19:38 PORTABLE CHEST X-RAY Ordered. EDMS 19:40 [facility] [place] was scanned into [employer] and attached to record. gjb 19:45 RETICULOCYTE COUNT Ordered. EDMS 19:47 FERRITIN Ordered. EDMS 19:48 TOTAL IRON BINDING CAPACIT Ordered. EDMS 19:51 [place] ordered. pc 21:10 ELECTROCARDIOGRAM ADULT ordered. EDMS 21:10 ELECTROCARDIOGRAM ADULT ordered. EDMS 21:11 CARDIAC MARKER PANEL Ordered. EDMS 21:13 CARDIAC MARKER PANEL Ordered. EDMS EC:21 Rate is 125 beats/min. Rhythm is regular, Sinus tachycardia. QRS [place] is Normal. SD pc interval is normal. QRS interval is normal. QT interval is normal. No Q waves. T waves are Normal. ST Segment is depressed in leads V2, V3, V4, 1-2mm. Clinical impression: Sinus tachycardia and Rate related ST changes. Administered Medications: 18:34 Drug: NS 0.9% 1000 ml [sodium chloride 0.9 % intravenous solution] Route: IV; Rate: 100 bcj mL/hr; Site: left antecubital; 18:58 Not Given (Physician Discretion; provider dis): Activated Charcoal (1g/kg) Suspension ld5 50 grams PO once 20:23 Drug: Potassium Chloride 40 mEq [potassium chloride ER 10 mEq tablet,extended release ko2 (4 tabs)] Route: PO; Critical Care Time: 19:29 Critical care time: Bedside Care: 25 minutes, Consultation: 10 minutes, Family pc Intervention: 10 minutes. Total time: 45 minutes Signatures: Dispatcher [employer] EDMS Abundio Loza MD MD pc Johnson, Bruce, RN RN anaj Jeyson, Keren Alaniz, RN RN Ashley Ellis, Showcase Maker Unit ml3 Batool Guerrero RN RN sls2 Lexy Woods Laura RN ld5 Victorina Bergeron RN ko2 The chart was reviewed and I authenticate all verbal orders and agree with the evaluation and treatment provided.Corrections: (The following items were deleted from the chart) 18:33 18:05 Consult PFS/PSA/Coater Associate: Patient's case requires discussion with on-call pc Psychiatrist ordered. pc 19:45 19:40 RETICULOCYTE COUNT ordered. EDMS EDMS 19:46 19:40 IRON (FE) ordered. EDMS EDMS 19:46 19:40 TOTAL IRON BINDING CAPACIT ordered. EDMS EDMS 19:46 19:40 FERRITIN ordered. EDMS EDMS 21:13 21:06 CARDIAC MARKER PANEL ordered. EDMS EDMS 21:14 21:11 CARDIAC MARKER PANEL ordered. EDMS EDMS Attachments: 19:40 [facility] Payment Agreement gjb Chart Complete MTDD
--- NOTE | 2016-08-04 22:31 | EDDOCDS ---
Physician Documentation [facility] Name: Marisol Jackson Age: 25 yrs Sex: Female : 1990 Arrival Date: 08/02/2016 Time: 18:00 Bed 2 Private MD: Disposition: 08/02 19:29 Critical Care:. pc Disposition: 08/02/16 19:32 Hospitalization ordered by Mariam Trujillo for Inpatient Admission. Preliminary diagnosis are Suicide attempt, Poisoning by antiallergic and antiemetic drugs, intentional self-harm, Poisoning by selective serotonin and norepinephrine reuptake inhibitors, intentional self-harm, Major depressive disorder, recurrent severe without psychotic features. - Bed requested for PCU. - Status is Inpatient Admission. maren - Condition is Stable. - Problem is new. - Symptoms are unchanged. HPI: 18:23 This 25 yrs old /[place] Female presents to ER with complaints of Overdose. 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 A reliable pc history and/or examination was not able to be obtained, due to She will admit to what she took as an overdose or when. The patient will not comment on the intention of their statements and/or actions. At their worst, the symptoms were severe. In the emergency department, the symptoms are unchanged. She did not show up for work and was found in her room lethargic, with empty bottles of Benadryl present, up to 41 pills, 50mg each. Her EMR shows she was just released from our [facility] on Lexapro and Wellbutrin. The patient has not experienced similar symptoms in the past. Historical: - Allergies: no known allergies; - Home Meds: 1. Ambien 5 mg oral tab nightly 2. Lexapro 30mg Oral tab once daily 3. Wellbutrin 100 mg oral tab nightly - PMHx: Depression; - PSHx: none; - The history from nurses notes was reviewed: and I agree with what is documented. - Social history: Smoking status: unknown if patient ever smoked tobacco. No barriers to communication noted. - : The pt / caregiver states he / she is not on anticoagulants. Home medication list is obtained from [employer] import data. - Exposure Risk Screening:: None identified. - Immunization history:: All immunizations up-to-date. - Family history: Not pertinent. - Social history:: the patient is a non-smoker, the patient does not drink alcohol. 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 The psychiatric and neurological components pc are also addressed in the HPI. Exam: 18:23 General Appearance: alert, no acute distress. pc 18:23 ENT: ear, nose and throat normal, pharynx normal. 18:23 Eyes: pupils equal, round and reactive to light, extraocular motions intact, no nystagmus . 18:23 Neck: The exam reveals no acute abnormalities. ROM is normal and painless. No nuchal rigidity is noted.. 18:23 Respiratory: breathing is even and unlabored, breath sounds are normal. 18:23 Cardiovascular: regular heart rhythm, normal heart sounds, equal and full pulses bilaterally, tachycardia, 130bpm. 18:23 Abdomen: soft, non-tender, no organomegaly, normal bowel sounds. 18:23 Skin: skin color is normal, warm, dry. 18:23 Extremities: The extremities have a grossly normal appearance, are non-tender, without acute ROM abnormalities. 18:23 Neuro: alert, oriented to person, place and time, cranial nerves normal as tested, no motor deficits, no sensory deficits. 18:23 Psych: mood is depressed, non-communicative, affect is flat. Vital Signs: 18:10 BP 161 / 114 (auto/); ld5 18:11 Pulse 129 MON; Pulse Ox 100% ; ld5 18:15 BP 173 / 121 (auto/); ko2 18:15 Pulse 127 MON; Pulse Ox 100% ; ko2 18:19 Resp 20; Temp 97.7; ld5 18:30 BP 181 / 124 (auto/); ko2 18:30 Pulse 130 MON; Pulse Ox 100% ; ko2 18:45 BP 170 / 124 (auto/); ko2 18:45 Pulse 128 MON; Pulse Ox 100% ; ko2 19:00 BP 161 / 115 (auto/); ko2 19:01 Pulse 127 MON; Pulse Ox 100% ; ko2 19:09 Pulse 133 MON; Pulse Ox 100% ; ko2 19:15 BP 168 / 121 (auto/); ko2 19:24 Weight 65.6 kg / 144.62 lbs (M); ko2 20:28 BP 139 / 99; Pulse 128; Resp 16; Temp 99.3(T); Pulse Ox 97% on R/A; Pain 0/10; ko2 21:26 BP 154 / 101; Pulse 113; Resp 18; Pulse Ox 99% ; ko2 MDM: 18:05 Activated Charcoal (1g/kg) Suspension 50 grams PO once ordered. pc 18:05 PSA/PFS to call Nursing Boxing Inspector, to enter patient data on [place] Safe [place] if patient pc involuntarily admitted or transferred for SI or HI ordered. 18:05 Call Poison Control ordered. pc 18:05 Unit Support Representative/Pulse Ox/q 15 min VS ordered. pc 18:05 Confirm accurate psychiatric medication list and times of last dosage ordered. pc 18:05 Detain Pt Until Medically/PFS Cleared ordered. pc 18:05 IV Saline Lock ordered. pc 18:06 Acetaminophen Level Ordered. EDMS 18:06 Basic Metabolic Profile Ordered. EDMS 18:06 Complete Blood Count Ordered. EDMS 18:06 Drug Eval Toxicology ED Only Ordered. EDMS 18:06 Ethyl Alcohol (ethanol) Ordered. EDMS 18:06 HCG,Serum Qualitative Ordered. EDMS 18:06 Liver Profile Ordered. EDMS 18:06 Salicylate Level Ordered. EDMS 18:06 Thyroid Stimulating Hormone Ordered. EDMS 18:06 ECG WITH READING ER PHYS+CARDIAG ordered. EDMS 18:21 Test interpretation: EKG. pc 18:23 Differential diagnosis: depression, suicide attempt, intentional drug overdose with pc drug-related tachycardia and HTN. Plan: labs, EKG, Poison Control, PFS eval. 18:33 NS 0.9% 1000 ml IV at 100 mL/hr continuous ordered. pc 18:36 Other consultation: Poison control, instructed to admit patient, due to the possibility pc of a Wellbutrin ingestion. 18:50 Financial registration complete. gjb 18:59 Complete Blood Count Reviewed. pc 18:59 HCG,Serum Qualitative Reviewed. pc 19:06 BED REQUEST+ADM ordered. EDMS 19:22 Acetaminophen Level Reviewed. pc 19:22 Basic Metabolic Profile Reviewed. pc 19:22 Salicylate Level Reviewed. pc 19:22 Drug Eval Toxicology ED Only Reviewed. pc 19:22 Ethyl Alcohol (ethanol) Reviewed. pc 19:22 HCG,Serum Qualitative Reviewed. pc 19:22 Liver Profile Reviewed. pc 19:22 Thyroid Stimulating Hormone Reviewed. pc 19:22 Potassium Chloride Extended Release Tablet 40 mEq PO once ordered. pc 19:29 [place] Safe Act reporting: The patient poses a significant risk to self or others, and pc PSA/PFS has notified the Nursing Boxing Inspector and he/she will complete the required marketing database analyst. Data reviewed: old medical records, vital signs, nurses notes, EKG(s), lab test results. Test interpretation: LAB - all labs as ordered have been reviewed, interpreted and considered in the overall management of the clinical presentation;. The patient has been re-examined and re-evaluated. There is no appreciated change of the patient's symptoms at this time. Physician consultation: Dr. Mariam Trujillo regarding admission. Disposition: The historical points, examination findings, and any diagnostic results supporting the provided diagnosis, were discussed with the patient or legal guardian. The need for further work-up and/or treatment in the hospital was explained. 19:36 Admission / Observation Status ordered. EDMS 19:36 ELECTROCARDIOGRAM ADULT ordered. EDMS 19:36 REGULAR DIET ordered. EDMS 19:36 URINE TEST Ordered. EDMS 19:37 DRUG EVAL TOXICOLOGY ED ONLY Ordered. EDMS 19:37 URINALYSIS Ordered. EDMS 19:37 CBC WITH DIFFERENTIAL Ordered. EDMS 19:37 COMPLETE COMPHRENSIVE METABOLI Ordered. EDMS 19:37 THYROID STIMULATING HORMONE Ordered. EDMS 19:37 MAGNESIUM LEVEL Ordered. EDMS 19:37 CARDIAC RISK PROFILE Ordered. EDMS 19:37 URINE CULTURE Ordered. EDMS 19:38 PORTABLE CHEST X-RAY Ordered. EDMS 19:40 [facility] [place] [facility] Payment Agreement was scanned into [email or web address] and attached to record. gjb 19:45 RETICULOCYTE COUNT Ordered. EDMS 19:47 FERRITIN Ordered. EDMS 19:48 TOTAL IRON BINDING CAPACIT Ordered. EDMS 19:51 [place] ordered. pc 21:10 ELECTROCARDIOGRAM ADULT ordered. EDMS 21:10 ELECTROCARDIOGRAM ADULT ordered. EDMS 21:11 CARDIAC MARKER PANEL Ordered. EDMS 21:13 CARDIAC MARKER PANEL Ordered. EDMS EC:21 Rate is 125 beats/min. Rhythm is regular, Sinus tachycardia. QRS [place] is Normal. SC pc interval is normal. QRS interval is normal. QT interval is normal. No Q waves. T waves are Normal. ST Segment is depressed in leads V2, V3, V4, 1-2mm. Clinical impression: Sinus tachycardia and Rate related ST changes. Administered Medications: 18:34 Drug: NS 0.9% 1000 ml [sodium chloride 0.9 % intravenous solution] Route: IV; Rate: 100 bcj mL/hr; Site: left antecubital; 18:58 Not Given (Physician Discretion; provider dis): Activated Charcoal (1g/kg) Suspension ld5 50 grams PO once 20:23 Drug: Potassium Chloride 40 mEq [potassium chloride ER 10 mEq tablet,extended release ko2 (4 tabs)] Route: PO; Critical Care Time: 19:29 Critical care time: Bedside Care: 25 minutes, Consultation: 10 minutes, Family pc Intervention: 10 minutes. Total time: 45 minutes Signatures: Dispatcher [employer] EDMS Abundio Loza MD MD pc Johnson, Bruce, RN RN anaj Jeyson, Keren Alaniz, RN RN Ashley Ellis, Cell Stripper Unit ml3 Batool Guerrero RN RN sls2 Lexy Woods Laura RN ld5 Victorina Bergeron RN ko2 The chart was reviewed and I authenticate all verbal orders and agree with the evaluation and treatment provided.Corrections: (The following items were deleted from the chart) 18:33 18:05 Consult PFS/PSA/Rehabilitation Medicine Physician: Patient's case requires discussion with on-call pc Psychiatrist ordered. pc 19:45 19:40 RETICULOCYTE COUNT ordered. EDMS EDMS 19:46 19:40 IRON (FE) ordered. EDMS EDMS 19:46 19:40 TOTAL IRON BINDING CAPACIT ordered. EDMS EDMS 19:46 19:40 FERRITIN ordered. EDMS EDMS 21:13 21:06 CARDIAC MARKER PANEL ordered. EDMS EDMS 21:14 21:11 CARDIAC MARKER PANEL ordered. EDMS EDMS Attachments: 19:40 [facility] Payment Agreement gjb Chart Complete MTDD
--- NOTE | 2016-08-04 22:31 | EDDOCDS ---
Nurse's Notes [facility] Name: Marisol Jackson Age: 25 yrs Sex: Female : 1990 Arrival Date: 08/02/2016 Time: 18:00 Bed 2 Private MD: Diagnosis: Suicide attempt;Poisoning by antiallergic and antiemetic drugs, intentional self-harm;Poisoning by selective serotonin and norepinephrine reuptake inhibitors, intentional self-harm;Major depressive disorder, recurrent severe without psychotic features Presentation: 08/02 18:20 Presenting complaint: EMS states: may have taken OD of 30 to 40 benadryl 50mg between j 1500 and 1700 today. found ETOH in room - unsure if she has drank any. had rx's for Lexapro and Wellbutrin at home - unsure if she took any. pt speaking only single words sentances, shaky/tremolous on arrival. Adult Sepsis Screening: Patient has new or worsening altered mentation (1 point). Patient's respiratory rate is less than 22. Systolic blood pressure is greater than 100. Patient has a qSOFA score of 1- Negative Sepsis Screen. Mental Health Triage Level: Level 3: The patient presents for care as a result of a suicide attempt. Suicide/Homicide risk assessment- The patient admits to and/or has been reported to be having suicidal ideations. The patient reports that he/she has been admitted to an inpatient mental health facility in the last 30 days. The patient reports that he/she has a recent or current history of substance abuse. The patient reports that he/she has a prior history of suicide attempt and/or organized plan. The patient reports that he/she has not experienced a significant life altering event in the last 30 days. The patient reports that he/she lacks adequate social support. The patient reports he/she has no significant chronic medical condition(s). 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 Transition of care: patient was not received from another setting of care. Care prior to arrival: See EMS report. Saline lock initiated. Oxygen administered by EMS. 18:20 Acuity: RAHUL Level 2 [facility] 18:20 Method Of Arrival: Ambulance [facility] Triage Assessment: 18:27 General: Appears distressed, Behavior is cooperative. Pain: Denies pain. HIV screening [facility] NA for this visit Offered previously. Neurological: Level of Consciousness is awake, Moves all extremities. Speech is slurred, Facial symmetry appears normal, Pupils are pinpoint. Cardiovascular: Rhythm is sinus tachycardia. Respiratory: Airway is patent Respiratory effort is even, unlabored, Respiratory pattern is regular. Derm: Skin is pink, warm & dry. LINK CUTTER: 19:25 LMP 08/02/2016 ko2 Historical: - Allergies: no known allergies; - Home Meds: 1. Ambien 5 mg oral tab nightly 2. Lexapro 30mg Oral tab once daily 3. Wellbutrin 100 mg oral tab nightly - PMHx: Depression; - PSHx: none; - The history from nurses notes was reviewed: and I agree with what is documented. - Social history: Smoking status: unknown if patient ever smoked tobacco. No barriers to communication noted. - : The pt / caregiver states he / she is not on anticoagulants. Home medication list is obtained from [employer]. - Exposure Risk Screening:: None identified. - Immunization history:: All immunizations up-to-date. - Family history: Not pertinent. - Social history:: the patient is a non-smoker, the patient does not drink alcohol. Screenin:28 Screening information is obtained from the patient. Fall risk: No risks identified. ko2 Assistance ADL's: requires no assistance with activities of daily living. Abuse/DV Screen: The patient / caregiver reports he/she is: not in a situation that causes fear, pain or injury. Nutritional screening: No deficits noted. Advance Directives: Unable to assess Advance Directive status due to pt condition. Assessment: 18:25 General: tampon removed, by this mortgage underwriter,when placed on bedpan. srm 18:42 General: Pt spilled charcoal on blanket. When asked if she would drink any more pt ld5 shook head. Provider aware and reports no need to continue with charcoal. 18:56 General: Pt up to commode to provide urine specimen. Difficulty following commands. ld5 escorts at bedside. 19:08 General: Appears in no apparent distress, Behavior is anxious, restless. Pain: Denies ko2 pain. Neurological: Level of Consciousness is awake. Cardiovascular: Rhythm is sinus tachycardia No ectopy. Respiratory: Airway is patent Respiratory effort is even, unlabored, Respiratory pattern is regular, symmetrical. GI: Bowel sounds present X 4 quads. Derm: Skin is normal. Musculoskeletal: Range of motion intact in all extremities. 20:00 General: Appears in no apparent distress, Behavior is anxious. Pain: Denies pain. ko2 Neurological: Level of Consciousness is awake. Respiratory: Airway is patent Respiratory effort is even, unlabored, Respiratory pattern is regular, symmetrical. Derm: Skin is normal. 21:00 General: Appears in no apparent distress, Behavior is cooperative, restless. Pain: ko2 Denies pain. Neurological: Level of Consciousness is awake. Cardiovascular: Rhythm is sinus tachycardia. Respiratory: Airway is patent Respiratory effort is even, unlabored, Respiratory pattern is regular, symmetrical. Derm: Skin is normal. Vital Signs: 18:10 BP 161 / 114 (auto/); ld5 18:11 Pulse 129 MON; Pulse Ox 100% ; ld5 18:15 BP 173 / 121 (auto/); ko2 18:15 Pulse 127 MON; Pulse Ox 100% ; ko2 18:19 Resp 20; Temp 97.7; ld5 18:30 BP 181 / 124 (auto/); ko2 18:30 Pulse 130 MON; Pulse Ox 100% ; ko2 18:45 BP 170 / 124 (auto/); ko2 18:45 Pulse 128 MON; Pulse Ox 100% ; ko2 19:00 BP 161 / 115 (auto/); ko2 19:01 Pulse 127 MON; Pulse Ox 100% ; ko2 19:09 Pulse 133 MON; Pulse Ox 100% ; ko2 19:15 BP 168 / 121 (auto/); ko2 19:24 Weight 65.6 kg (M); ko2 20:28 BP 139 / 99; Pulse 128; Resp 16; Temp 99.3(T); Pulse Ox 97% on R/A; Pain 0/10; ko2 21:26 BP 154 / 101; Pulse 113; Resp 18; Pulse Ox 99% ; ko2 Vitals: 18:17 Log In Time N/A - ambulance arrival. ld5 18:29 Refer to monitor trend for complete vital signs trends. [facility] ED Course: 18:01 Patient visited by Kianna Crews, Refractive Surgeon. deg 18:01 Patient moved to Waiting deg 18:01 Patient moved to 2 deg 18:04 Abundio Loza MD is Attending Physician. pc 18:16 Acetaminophen Level Sent. ld5 18:16 Basic Metabolic Profile Sent. ld5 18:16 Complete Blood Count Sent. ld5 18:16 Ethyl Alcohol (ethanol) Sent. ld5 18:16 HCG,Serum Qualitative Sent. ld5 18:16 Liver Profile Sent. ld5 18:16 Salicylate Level Sent. ld5 18:16 Thyroid Stimulating Hormone Sent. ld5 18:18 Patient visited by Abundio Loza MD. pc 18:21 EKG done. (by ED staff). Reviewed by Abundio Loza MD. nb2 18:22 Patient visited by Patricia Castellanos. nb2 18:26 Triage Initiated bcj 18:29 Appears restless. awaiting re-evaluation by ER physician. bcj 18:29 The patient / caregiver is instructed regarding the plan of care and ED course. bcj Accompanied by Law Enforcement, Patient has correct armband on for positive identification. Placed in psych safe attire. Bed in low position. Side rails up X2. Adult w/ patient. case monitor on. Pulse ox on. NIBP on. 18:29 Poison Control notified at 18:15 recommendations reviewed with aware. bcj 18:29 Maintain field IV. Site clean & dry. Gauge & site: 18ga LAC. bcj 18:31 Patient visited by Cory Erazo RN. bcj 18:54 Assisted to bedside commode. ruperto 18:55 Drug Eval Toxicology ED Only Sent. ld5 18:55 Urine collected. Clean catch specimen. Urine specimen sent to lab. ld5 18:56 Patient visited by Reena Whelan,WINTER. ld5 19:07 Victorina Bergeron,RN is Primary Nurse. ko2 19:10 Patient visited by Victorina Bergeron,WINTER. ko2 19:32 Mariam Trujillo is Hospitalizing Provider. pc 19:40 [facility] Payment Agreement was scanned into [employer] and attached to record. gjb 21:14 No procedures done that require assistance. Goodson cath inserted 16 Fr. Balloon ko2 inflated. To gravity drainage. returned clear yellow urine. Administered Medications: 18:34 Drug: NS 0.9% 1000 ml [sodium chloride 0.9 % intravenous solution] Route: IV; Rate: 100 bcj mL/hr; Site: left antecubital; 18:58 Not Given (Physician Discretion; provider dis): Activated Charcoal (1g/kg) Suspension ld5 50 grams PO once 20:23 Drug: Potassium Chloride 40 mEq [potassium chloride ER 10 mEq tablet,extended release ko2 (4 tabs)] Route: PO; Order Results: Lab Order: Acetaminophen Level; SPEC'M 08/02/16 18:15 Test: ACETAMINOPHEN LEVEL; Value: < 2.0; Range: 10.0-30.0; Abnormal: Below low normal; Units: UG/ML; Status: F Lab Order: Basic Metabolic Profile; SPEC'M 08/02/16 18:15 Test: GLUCOSE, FASTING; Value: 99; Range: 70-105; Units: MG/DL; Status: F Test: BLOOD UREA NITROGEN; Value: 14; Range: 7-18; Units: MG/DL; Status: F Test: CREATININE FOR GFR; Value: 0.84; Range: 0.55-1.02; Units: MG/DL; Status: F Test: SODIUM LEVEL; Range: 136-145; Units: MEQ/L; Status: I Test: POTASSIUM SERUM; Range: 3.5-5.1; Units: MEQ/L; Status: I Test: CHLORIDE LEVEL; Range: 98-107; Units: MEQ/L; Status: I Test: CARBON DIOXIDE LEVEL; Range: 21-32; Units: MEQ/L; Status: I Test: ANION GAP; Range: 8-16; Units: MEQ/L; Status: I Test: CALCIUM LEVEL; Range: 8.5-10.1; Units: MG/DL; Status: I Test: GLOMERULAR FILTRATION RATE; Value: > 60.0; Range: >60; Status: F Test: SODIUM LEVEL; Value: 137; Range: 136-145; Units: MEQ/L; Status: F Test: POTASSIUM SERUM; Value: 3.1; Range: 3.5-5.1; Abnormal: Below low normal; Units: MEQ/L; Status: F Test: CHLORIDE LEVEL; Value: 99; Range: 98-107; Units: MEQ/L; Status: F Test: CARBON DIOXIDE LEVEL; Value: 24; Range: 21-32; Units: MEQ/L; Status: F Test: ANION GAP; Value: 14; Range: 8-16; Units: MEQ/L; Status: F Test: CALCIUM LEVEL; Value: 7.8; Range: 8.5-10.1; Abnormal: Below low normal; Units: MG/DL; Status: F Test Note: ; Units are mL/min/1.73 m2 Chronic Kidney Disease Staging per NKF: Stage I & II GFR >=60 Normal to Mildly Decreased Stage III GFR 30-59 Moderately Decreased Stage IV GFR 15-29 Severely Decreased Stage V GFR <15 Very Little GFR Left ESRD GFR <15 on MOTOR TUNE UP SPECIALIST Lab Order: Complete Blood Count; SPEC'M 08/02/16 18:15 Test: WHITE BLOOD COUNT; Value: 13.3; Range: 4.0-10.0; Abnormal: Above high normal; Units: K/mm3; Status: F Test: RED BLOOD COUNT; Value: 4.63; Range: 4.00-5.40; Units: M/mm3; Status: F Test: HEMOGLOBIN; Value: 12.3; Range: 12.0-16.0; Units: g/dl; Status: F Test: HEMATOCRIT; Value: 36.8; Range: 36.0-47.0; Units: %; Status: F Test: MEAN CORPUSCULAR VOLUME; Value: 79.4; Range: 80.0-96.0; Abnormal: Below low normal; Units: fl; Status: F Test: MEAN CORPUSCULAR HEMOGLOBIN; Value: 26.5; Range: 27.0-33.0; Abnormal: Below low normal; Units: pg; Status: F Test: MEAN CORPUSCULAR HGB CONC; Value: 33.4; Range: 32.0-36.5; Units: g/dl; Status: F Test: RED CELL DISTRIBUTION WIDTH; Value: 12.7; Range: 11.5-14.5; Units: %; Status: F Test: PLATELET COUNT, AUTOMATED; Value: 294; Range: 150-450; Units: k/mm3; Status: F Lab Order: Drug Eval Toxicology ED Only; SPEC'M 08/02/16 18:54 Test: AMPHETAMINES LEVEL URINE; Value: NEGATIVE; Range: NEGATIVE; Status: F Test: BARBITURATES URINE; Value: NEGATIVE; Range: NEGATIVE; Status: F Test: BENZODIAZEPINES URINE; Value: NEGATIVE; Range: NEGATIVE; Status: F Test: CANNABINOIDS URINE; Value: NEGATIVE; Range: NEGATIVE; Status: F Test: COCAINE METABOLITE URINE; Value: NEGATIVE; Range: NEGATIVE; Status: F Test: METHADONE URINE; Value: NEGATIVE; Range: NEGATIVE; Status: F Test: OPIATES URINE; Value: NEGATIVE; Range: NEGATIVE; Status: F Test: TRICYCLIC ANTIDEPRESS URINE; Value: NEGATIVE; Range: NEGATIVE; Status: F Test Note: ; ALL PRESUMPTIVE POSITIVE FINDINGS ARE UNCONFIRMED NORMAL VALUES THRESHOLD IN NG/ML AMPHETAMINES 1000 METHAMPHETAMINES 1000 BARBITURATES 300 BENZODIAZEPINES 300 CANNABINOIDS (THC) 50 COCAINE METABOLITE 300 METHADONE 300 OPIATES 300 PHENCYCLIDINE 25 TRICYCLIC ANTIDEPRESSANTS 1000 RESULTS ARE FOR MEDICAL PURPOSES ONLY. ALL URINE SPECIMENS WILL BE SAVED FOR 3 DAYS. IF CONFIRMATION OF A PRESUMPTIVE POSTIVE SCREEN RESULT IS DESIRED, CALL CHEMISTRY ([phone]) AND REQUEST URINE TO BE SENT TO REFERENCE LAB. FOR A LIST OF CLOSELY RELATED COMPOUNDS PLEASE CALL THE LAB. Lab Order: Ethyl Alcohol (ethanol); SPEC' 08/02/16 18:15 Test: ETHYL ALCOHOL (ETHANOL); Value: < 0.003; Range: 0.000-0.010; Units: %; Status: F Lab Order: HCG,Serum Qualitative; SPEC' 08/02/16 18:15 Test: HCG, SERUM QUALITATIVE; Value: NEGATIVE; Range: NEGATIVE; Status: F Lab Order: Liver Profile; [facility]' 08/02/16 18:15 Test: AST/SGOT; Value: 16; Range: 15-37; Units: U/L; Status: F Test: ALT/SGPT; Value: 20; Range: 12-78; Units: U/L; Status: F Test: ALKALINE PHOSPHATASE; Value: 49; Range: 45-117; Units: U/L; Status: F Test: BILIRUBIN,TOTAL; Value: 0.4; Range: 0.2-1.0; Units: MG/DL; Status: F Test: BILIRUBIN,DIRECT; Value: < 0.1; Range: 0.0-0.2; Units: MG/DL; Status: F Test: TOTAL PROTEIN; Value: 7.5; Range: 6.4-8.2; Units: GM/DL; Status: F Test: ALBUMIN; Value: 4.0; Range: 3.2-5.2; Units: GM/DL; Status: F Test: ALBUMIN/GLOBULIN RATIO; Value: 1.14; Range: 1.00-1.93; Status: F Lab Order: Salicylate Level; 08/02/16 18:15 Test: SALICYLATE LEVEL; Value: < 1.7; Range: 5.0-30.0; Abnormal: Below low normal; Units: MG/DL; Status: F Lab Order: Thyroid Stimulating Hormone; 08/02/16 18:15 Test: THYROID STIMULATING HORMONE; Value: 3.640; Range: 0.358-3.740; Units: uIU/ML; Status: F Lab Order: RETICULOCYTE COUNT; 08/02/16 18:15 Test: RETICULOCYTE % [id number]; Value: 2.30; Range: 0.5-1.5; Abnormal: Above high normal; Units: %; Status: F Test: RETICULOCYTE ABSOLUTE [id number]; Value: 111; Range: 17-77; Abnormal: Above high normal; Units: x10(9)/L; Status: F Test: RETIC HEMOGLOBIN CONTENT CHr; Value: 28.3; Range: 24-36; Units: PG; Status: F Lab Order: FERRITIN; 08/02/16 18:15 Test: FERRITIN; Value: 95; Range: 8-252; Units: NG/ML; Status: F Lab Order: TOTAL IRON BINDING CAPACIT; 08/02/16 18:15 Test: IRON (FE); Value: 113; Range: 50-170; Units: UG/DL; Status: F Test: TOTAL IRON BINDING CAPACITY; Value: 420; Range: 250-450; Units: UG/DL; Status: F Test: PERCENT SATURATION; Value: 26.9; Range: 13.2-37.4; Units: %; Status: F Lab Order: CARDIAC MARKER PANEL; 08/02/16 18:15 Test: CPK CREATINE PHOSPHOKINASE; Range: 26-192; Units: U/L; Status: I Test: CK-MB VALUE MASS; Range: 0.0-3.6; Units: NG/ML; Status: I Test: MB/CK RELATIVE INDEX; Range: < OR =4; Status: I Test: TROPONIN I; Range: < 0.10; Units: NG/ML; Status: I Outcome: 19:32 Decision to Hospitalize by Provider. pc 21:16 Discharge Assessment: Patient awake, alert and oriented x 3. No cognitive and/or ko2 functional deficits noted. Patient verbalized understanding of disposition instructions. patient administered narcotics - no. The following High Risk Discharge criteria are identified: None. Admitted to PCU accompanied by nurse, accompanied by tech, via stretcher, on monitor, with chart. Condition: stable. No special radiology studies were completed. Admission hand-off: Report Faxed Fax receipt verified by W[facility]. Property :Personal belongings accompany Pt. 21:29 Patient left the ED. maren Signatures: Abundio Loza MD MD pc Murray, Denise, Refractive Surgeon Unit deg Cory Erazo, RN RN Paloma Main RN RN marco Benítez, Keren Alaniz, RN Reena ChristiansonRN RN ld5 Katt Mir, Victorina KamaraRN RN Lexy Ríos Nicole nb2 Chart Complete PAUL
== END 2016-08-03 18:12 ==
LOC: M ED 18:00 → M ED INP 19:27 → M PCU 21:38
PROVIDERS: ADMIT General Practice; ATTEND Hospitalist
DX: T45.0X2A Poisoning by antiallergic and antiemetic drugs, intentional self-harm, initial encounter (principal); R41.82 Altered mental status, unspecified; R25.1 Tremor, unspecified; Y92.098 Other place in other non-institutional residence as the place of occurrence of the external cause; F32.9 Major depressive disorder, single episode, unspecified; G47.00 Insomnia, unspecified; Z79.899 Other long term (current) drug therapy; F17.210 Nicotine dependence, cigarettes, uncomplicated; Z91.5 Personal history of self-harm
CPT/HCPCS: 36415; 51702; 71010; 80048; 80053; 80061; 80076; 80306; 81001; 82550; 82553; 82728; 83550; 83735; 84443; 84703; 85025; 85027; 85046; 87086; 93005; 93041; 99285; G0480

== ENCOUNTER 2016-08-03 18:24 | Inpatient (IN) | payer OTHER ==
[~2016-08-03] VITALS: Ht 149.9 cm; Wt 62.0 kg
[~2016-08-03 18:24] MED LIST changes: +LEXA1TAB PO
[2016-08-03 18:37] VITALS: BP 115/70
--- NOTE | 2016-08-03 18:42 | CR ---
DATE OF CONSULTATION: 08/03/2016 CHIEF COMPLAINT: She overdosed. SUBJECTIVE: She is 25 years old. 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 She was in the inpatient mental health unit just over a week or so ago, was discharged, says had to followup at [employer] afterwards. She was brought to the hospital as she was found to be jittery and not very responsive, she does not remember the journey to the hospital but remembers waking up. Does remember taking an overdose of sleeping pills, over the counter, Unisom. Says took more than 20 pills and washed it down with water. She says that she had wanted to at that time, but is glad that she did not. Says that there are stresses she has, which she suggests are personal and did not discuss. Does say no longer sees her previous boyfriend. Has been depressed and had taken an overdose at the time of her first hospitalization earlier this month. The record had indicated that she had overdosed in February of last year as well. She denies that is the case. Says that she had said so because she was being "dramatic." PAST PSYCHIATRIC HISTORY: Has overdosed in the past, as stated above, and was admitted to psychiatry earlier this month. She is seen as an outpatient at [place]. She has been on Lexapro at 30 mg daily, bupropion 100 mg daily, Ambien 5 mg at night as needed. ALLERGIES: No known drug allergies. 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 Apparently no significant substance abuse history. Has limited supports locally. Denies that she has any friends here. MENTAL STATUS EXAMINATION: She is sitting up in bed. She is neat. She is somewhat guarded and superficially cooperative. There is no agitation. No psychomotor retardation. Fair to good eye contact. Answers questions briefly, logically and coherently. Affect is restricted in range. Denies active suicidal thoughts at present. No homicidal ideas or intents. Currently, no evidence of any psychosis. Does not appear to be internally preoccupied. No fluctuation of consciousness. Cognition is grossly intact. Judgment is quite questionable, as is insight. Intellect is average. ASSESSMENT: 1. Unspecified depressive disorder. 2. Rule out major depressive disorder. RECOMMENDATIONS: She needs inpatient psychiatric hospitalization for further management and stabilization when she is fully medically cleared. She is depressed, and has been suicidal and took a substantial overdose of medicine to kill herself. I understand that she is now deemed to be medically stable. She remains at risk of harming herself. Meets criteria for involuntary hospitalization and the relevant application has been made. Thank you for the consultation. If there are any questions, please call. The assessment took 30 minutes.
[2016-08-03] MEDS ORDERED: ESCITALOPRAM OXALATE 10 MG TAB (LEXAPRO) PO SCH (21:00)
[2016-08-03] MEDS ORDERED: MAALOX 30 ML SUSP *UDC PO PRN (21:30)
[2016-08-03] MEDS ORDERED: zolPIDEM TARTRATE 5 MG TAB PO PRN (21:30)
[2016-08-03] MEDS ORDERED: MOM 30ML SUSPENSION UDC PO PRN (21:30)
[2016-08-04 06:39] VITALS: BP 124/80
[2016-08-04] MEDS: ACETAMINOPHEN TAB 650MG DOSE (2X325MG) PO PRN (08:12)
[2016-08-04] MEDS ORDERED: buPROPion (WELLBUTRIN SR) 100 MG SR TAB PO SCH (09:00)
--- NOTE | 2016-08-04 10:44 | HPEPDOC ---
Medical History and Physical Date of Admission Aug 03, 2016 at 18:24 History and Physical PCP: [facility] ATTENDING: Dr. Koffi Simon HPI: 25[facility]F [facility], being medically examined today. Patient was admitted to [facility] for medical stabilization 08/02/16- 08/03 and was felt stable for transfer [facility] after having apparently taken 30- 40 tablets of Benadryl and had cut her wrists bilaterally. Today she has no acute medical complaints. Denies any fevers, chills, weakness, fatigue, GARCIA, CP, SOB, cough, palpitations, abdominal pain, N/V/D or changes in bowel or bladder habits. 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 Illicit Drugs: Denies IV Drug Use: Denies Tattoos done unprofessionally: Denies FAMHX: Mother: Alive, well Father: Alive, well Siblings: Alive, well Children: None Unexpected deaths due to medical reasons: None. ROS: As noted in HPI, otherwise 11pt ROS of systems reviewed and remarkable only for LMP 06/22/16 PE: GEN: 25yoF, appears stated age. Well-nourished, well developed. No acute distress. Alert and oriented x 3. Pleasant, interactive. HEENT: Normocephalic, atraumatic. Pupils are equal, round, and reactive to light. Extraocular movements are intact. No nystagmus appreciated. Sclera are nonicteric. Conjunctiva without injection. Nose midline. Nasal turbinates without bogginess. EACs both patent BL. TMs both visualized and william with good cone of light, no bulging or erythema. No facial asymmetry. Moist mucous membranes. Dentition fair. Pharynx pink and moist, no cobblestoning. Neck supple , trachea midline. No lymphadenopathy or thyromegaly appreciated. CHEST: Regular rate and rhythm, +S1, +S2 LUNGS: Clear to auscultation bilaterally. No wheezes, rales, or rhonchi. Breathing appears symmetric and easy. Patient is speaking in full sentences. No accessory muscle use. ABD: Round, soft, non-tender, non-distended. +Bowel sounds throughout. No rebound or guarding. No costovertebral angle tenderness. EXT: Pulses 2+ bilaterally dorsalis pedis and radial. No lower extremity edema appreciated. SKIN: [place], dry, warm. Capillary refill <2sec. No rashes. Superficial lacerations are noted at the bilateral wrists. No drainage, minimal erythema. NEURO: Alert and oriented x 3. Cranial nerves III-XII are intact. No focal deficits appreciated. EK08/03/16 SINUS RHYTHM 87 bpm Prolonged QTc (508) Nonspecific ST-T wave abnormalities Less artifact than tracing done 08-02-16 A&P: 25yoF [facility] 1. Psych. Plan per Psychiatry. Recheck EKG. 2. Lacerations B/L wrist. Keep area clean and dry. Dry dressing if needed. 3. Borderline EKG. No cardiac signs or symptoms appreciated on exam. 4. Follow up with PCP on discharge. [facility]. 5. Staff member present throughout examination, [employer]. Vital Signs Vital Signs Label Value Date Time Patient Temperature 96.8 degrees F 08/04/16 0639 Temperature Source Tympanic 08/04/16 0639 Pulse 62 08/04/16 0639 Respiratory Rate 18 bpm 08/04/16 0639 Blood Pressure Assessment 124/80 (95) 08/04/16 0639 Laboratory Data Labs 24H Item Value Date Time White Blood Count 7.8 K/mm3 08/03/16 0554 Red Blood Count 4.09 M/mm3 08/03/16 0554 Hemoglobin 10.6 g/dl L 08/03/16 0554 Hematocrit 32.9 % L 08/03/16 0554 Mean Corpuscular Volume 80.6 fl 08/03/16 0554 Mean Corpuscular Hemoglobin 25.9 pg L 08/03/16 0554 Mean Corpuscular Hemoglobin Concent 32.2 g/dl 08/03/16 0554 Red Cell Distribution Width 12.7 % 08/03/16 0554 Platelet Count 271 k/mm3 08/03/16 0554 Sodium Level 143 MEQ/L 08/03/16 0554 Potassium Level 3.5 MEQ/L 08/03/16 0554 Chloride Level 109 MEQ/L H 08/03/16 0554 Carbon Dioxide Level 26 MEQ/L 08/03/16 0554 Anion Gap 8 MEQ/L 08/03/16 0554 Blood Urea Nitrogen 8 MG/DL 08/03/16 0554 Creatinine 0.69 MG/DL 08/03/16 0554 Glomerular Filtration Rate > 60.0 08/03/16 0554 Fasting Glucose 100 MG/DL 08/03/16 0554 Calcium Level 7.2 MG/DL L 08/03/16 0554 Magnesium Level 2.2 MG/DL 08/03/16 0554 Total Bilirubin 0.6 MG/DL 08/03/16 0554 Aspartate Amino Transf (AST/SGOT) 13 U/L L 08/03/16 0554 Alanine Aminotransferase (ALT/SGPT) 15 U/L 08/03/16 0554 Alkaline Phosphatase 41 U/L L 08/03/16 0554 Total Creatine Kinase 89 U/L 08/03/16 0554 Creatine Kinase MB 1.0 NG/ML 08/03/16 0554 Creatine Kinase MB Relative Index 1.12 08/03/16 0554 Troponin I < 0.02 NG/ML 08/03/16 0554 Total Protein 6.2 GM/DL L 08/03/16 0554 Albumin 3.3 GM/DL 08/03/16 0554 Albumin/Globulin Ratio 1.14 08/03/16 0554 Triglycerides Level 127 MG/DL 08/03/16 0554 Cholesterol Level 188 MG/DL 08/03/16 0554 LDL Cholesterol 96.6 MG/DL 08/03/16 0554 Non-HDL Cholesterol (LDL + VLDL) 122 MG/DL 08/03/16 0554 HDL Cholesterol 66 MG/DL 08/03/16 0554 Cholesterol/HDL Ratio 2.848 08/03/16 0554 Thyroid Stimulating Hormone (TSH) 2.610 uIU/ML 08/03/16 0554 Thyroid Stimulating Hormone (TSH) 3.640 uIU/ML 08/02/161814 Human Chorionic Gonadotropin, Qual NEGATIVE 08/02/16 181 Salicylates Level < 1.7 MG/DL L 08/02/16 181 Urine Opiates Screen NEGATIVE 08/02/16 185 Urine Methadone Screen NEGATIVE 08/02/16 185 Acetaminophen Level < 2.0 UG/ML L 08/02/161814 Urine Barbiturates Screen NEGATIVE 08/02/16 185 Urine Tricyclic Antidepressants NEGATIVE 08/02/161853 Urine Amphetamines Screen NEGATIVE 08/02/161853 Urine Benzodiazepines Screen NEGATIVE 08/02/161853 Urine Cocaine Metabolite Screen NEGATIVE 08/02/161853 Urine Cannabinoids Screen NEGATIVE 08/02/161853 Ethyl Alcohol Level < 0.003 % 08/02/161814 Home Medications Scheduled Bupropion HCl (Wellbutrin Sr) 100 Mg Tab 100 MG PO QHS Escitalopram Oxalate (Lexapro) 10 Mg Tab 30 MG PO DAILY Zolpidem Tartrate (Ambien) 5 Mg Tab 5 MG PO QHS Allergies Coded Allergies: No Known Allergies (Unverified , 07/22/16) Marely Ardon Aug 04, 2016 10:44
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
[2016-08-04] MEDS: ESCITALOPRAM OXALATE 10 MG TAB (LEXAPRO) PO SCH (12:18)
[2016-08-04] MEDS: clonazePAM 0.5 MG TAB PO SCH ×2 (12:18→20:14)
[2016-08-04 18:00] VITALS: BP 102/61
[2016-08-04] MEDS: traZODone 50 MG TAB PO SCH (20:14)
--- NOTE | 2016-08-04 21:27 | ECGEPIP ---
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
[2016-08-05 06:26] VITALS: BP 118/45
[2016-08-05] MEDS: clonazePAM 0.5 MG TAB PO SCH ×2 (08:11→20:01)
[2016-08-05] MEDS: ESCITALOPRAM OXALATE 10 MG TAB (LEXAPRO) PO SCH (08:11)
[2016-08-05 18:00] VITALS: BP 124/86
[2016-08-05] MEDS: traZODone 50 MG TAB PO SCH (20:01)
--- NOTE | 2016-08-05 21:15 | IPN ---
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 MEDICATIONS: - Lexapro 20 mg by mouth every morning - Klonopin 0.5 mg by mouth twice a day - trazodone 50 mg by mouth at bedtime plus as needed for insomnia SUBJECTIVE: "I'm okay." OBJECTIVE: Patient is lying in bed with poor eye contact, slow, monotone speech. Not engaging in conversation and answering with monosyllables. Patient denies side effect from the medication. Reports depression. No improvement since admission. MENTAL STATUS EXAMINATION: Patient is dressed in [facility]. Has poor eye contact. Speech is slow and monotone. Mood is depressed and anxious. Affect is restricted. No evidence of delusions or hallucinations. Memory is fair. Patient is fully oriented. Associations are intact. Thinking is logical. Thought content is appropriate. Patient continues having intermittent suicidal thoughts. No homicidal ideation. Insight and judgment are limited. ASSESSMENT: 1. Major depressive disorder. 2. Rule out cluster B. 3. Status post overdose. PLAN: 1. Decrease Klonopin to 0.5 mg by mouth twice a day x24 hours, then discontinue. 2. Continue Lexapro 20 mg by mouth every morning. 3. Continue with trazodone 50 mg by mouth at bedtime.
[2016-08-06 07:13] VITALS: BP 113/68
[2016-08-06] MEDS: ESCITALOPRAM OXALATE 10 MG TAB (LEXAPRO) PO SCH (08:53)
[2016-08-06] MEDS: clonazePAM 0.5 MG TAB PO SCH (08:53)
[2016-08-06] MEDS: NICOTINE 14 MG/24 HR TRANSDERMAL TD PRN (15:43)
[2016-08-06 18:00] VITALS: BP 143/89
[2016-08-06] MEDS: ACETAMINOPHEN TAB 650MG DOSE (2X325MG) PO PRN (21:04)
--- NOTE | 2016-08-06 21:33 | IPN ---
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 MEDICATIONS: - Lexapro 20 mg by mouth every morning - Klonopin 0.25 mg by mouth twice a day - trazodone 50 mg by mouth nightly as needed for insomnia SUBJECTIVE: "I think my chain of command is giving up on me." OBJECTIVE: Patient reports that she is improving, however she has told several staff members that she regrets that "the overdose did not work." She also has been making statements to staff such as "I know how to play the game and how to get out of here." The network planner has contacted the chain of command and they are worried about the symptoms of these statements. During the interview there is no evidence of psychotic symptoms, no auditory or visual hallucinations, her affect is very restricted with poor monotone speech and psychomotor retardation. MENTAL STATUS EXAMINATION: Patient is dressed in [facility]. Patient is cooperative during the exam, has poor eye contact, speech is slow and monotone. Mood is depressed and anxious. Affect is restricted. There is no evidence of delusions or hallucinations. Memory is fair. Patient is fully oriented. Associations are intact. Thinking is logical. Thought content is appropriate. Patient is denying suicidal or homicidal ideation during the interview but, as stated above, patient made comments that she regrets that the overdose did not work. Insight and judgment is poor. ASSESSMENT: 1. Major depressive disorder. 2. Rule out cluster B. 3. Status post overdose. PLAN: 1. Discontinue Klonopin. 2. Continue Lexapro 20 mg by mouth every morning. 3. Continue trazodone as needed for insomnia. 4. Continue close observation.
[2016-08-06] MEDS: traZODone 50 MG TAB PO SCH (22:52)
[2016-08-07 06:42] VITALS: BP 101/52
[2016-08-07] MEDS: ESCITALOPRAM OXALATE 10 MG TAB (LEXAPRO) PO SCH (09:08)
[2016-08-07] MEDS: hydrOXYzine 25 MG TAB PO PRN ×2 (09:52→16:28)
[2016-08-07] MEDS: ACETAMINOPHEN TAB 650MG DOSE (2X325MG) PO PRN (11:06)
[2016-08-07 18:00] VITALS: BP 110/55
[2016-08-07] MEDS: traZODone 50 MG TAB PO SCH (23:09)
[2016-08-08 06:00] VITALS: BP 97/56
[2016-08-08] MEDS: NICOTINE 14 MG/24 HR TRANSDERMAL TD PRN (08:14)
[2016-08-08] MEDS: ESCITALOPRAM OXALATE 10 MG TAB (LEXAPRO) PO SCH (08:14)
[2016-08-08] MEDS: hydrOXYzine 25 MG TAB PO PRN ×2 (08:14→17:41)
--- NOTE | 2016-08-08 08:49 | IPN ---
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 MEDICATIONS: - Lexapro 20 mg by mouth every morning - Klonopin 0.25 mg by mouth twice a day - trazodone 50 mg by mouth at bedtime as needed for insomnia SUBJECTIVE: "I have significant mood swings." OBJECTIVE: The patient continues to report mood swings. Her facial expression is restricted. Speech is poor, soft, monotone. She has psychomotor retardation. No psychotic symptoms. No auditory or visual hallucinations or delusions. The patient continues to report intermittent suicidal thoughts. MENTAL STATUS EXAMINATION: The patient is dressed in [facility]. The patient is cooperative. Speech is slow and monotone. Mood is depressed and anxious. Affect is restricted. No delusions or hallucinations. Short and long-term memory is fair. The patient is fully oriented. The patient is able to contract for safety on the unit but reports intermittent suicidal thoughts. No homicidal ideation. Insight and judgment is limited. ASSESSMENT: 1. Major depressive disorder. 2. Cluster B. 3. Status post overdose. PLAN: 1. Hydroxyzine 25 mg by mouth three times a day as needed for anxiety. 2. Lexapro 20 mg by mouth every morning. 3. Trazodone as needed for insomnia. 4. Continue close observation.
[2016-08-08] MEDS: NICOTINE 21MG/24HR 1 EA TRANSDERMAL TD SCH (15:01)
[2016-08-08 18:00] VITALS: BP 116/81
[2016-08-08] MEDS: traZODone 50 MG TAB PO SCH (23:00)
[2016-08-09 06:25] VITALS: BP 85/48
[2016-08-09] MEDS: NICOTINE 21MG/24HR 1 EA TRANSDERMAL TD SCH (08:09)
[2016-08-09] MEDS: ESCITALOPRAM OXALATE 10 MG TAB (LEXAPRO) PO SCH (08:09)
[2016-08-09] MEDS: hydrOXYzine 25 MG TAB PO PRN ×2 (08:09→15:31)
[2016-08-09 18:00] VITALS: BP 122/57
[2016-08-09] MEDS: traZODone 50 MG TAB PO SCH (22:35)
[2016-08-10 06:24] VITALS: BP 95/50
[2016-08-10] MEDS: ESCITALOPRAM OXALATE 10 MG TAB (LEXAPRO) PO SCH (08:22)
[2016-08-10] MEDS: NICOTINE 21MG/24HR 1 EA TRANSDERMAL TD SCH (08:22)
[2016-08-10] MEDS: hydrOXYzine 25 MG TAB PO PRN ×2 (08:23→15:31)
--- NOTE | 2016-08-10 09:33 | IPN ---
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 MEDICATIONS: - Lexapro 20 mg by mouth in the morning - trazodone 50 mg by mouth at night as needed for insomnia SUBJECTIVE: "I am feeling about the same." OBJECTIVE: The patient is improving slowly. The patient is displaying psychomotor retardation, monotone speech. Denies side effects from medications. The patient states that she has decided to accept and be transferred for long-term treatment to [place]. MENTAL STATUS EXAMINATION: The patient is dressed in [facility]. The patient is cooperative during the examination. Speech is slow, poor and monotone. Mood is depressed and anxious. Affect is restricted. No evidence of delusions or hallucinations. Short term and intermediate card tender memory are fair. The patient is fully oriented. Associations are intact. Thinking is logical. Thought content is appropriate. The patient is denying suicidal or homicidal ideation during the interview, but she is not reliable. Insight and judgment fair. ASSESSMENT: 1. Depression. 2. Status post overdose. PLAN: 1. Continue Lexapro 20 mg by mouth in the morning 2. Continue trazodone as needed for insomnia. 3. Continue close observation.
[2016-08-10] MEDS: traZODone 50 MG TAB PO SCH (21:31)
[2016-08-10 22:18] VITALS: BP 128/70
[2016-08-10] MEDS: traZODone 50 MG TAB PO PRN (22:24)
--- NOTE | 2016-08-11 06:11 | IPN ---
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 MEDICATIONS: - Lexapro 20 mg by mouth every morning - trazodone 50 mg by mouth nightly as needed for insomnia SUBJECTIVE: "I decided to go snf." OBJECTIVE: Patient states that he has been talking to the chain of command and has decided to continue her treatment in a long-term facility in [place]. Patient still has intermittent suicidal thoughts. She continues to be depressed, although she feels a little better. Patient reports insomnia and is requesting to have the medication changed. Patient has tolerated well the treatment. No evidence of auditory or visual hallucinations or delusions. MENTAL STATUS EXAMINATION: Patient is dressed in [facility]. Patient is cooperative during exam. Speech is slow and monotone. Mood is depressed and anxious. Affect is restricted. No evidence of delusions or hallucinations. Short and snf memory are fair. Patient is fully oriented. Associations are intact. Thinking is logical. Thought content is appropriate. Patient is having intermittent suicidal thought. Insight and judgment is limited. ASSESSMENT: 1. Depression. 2. Status post overdose. PLAN: 1. Continue Lexapro 20 mg by mouth every morning 2. Trazodone 50 mg by mouth nightly, plus 50 mg as needed for insomnia. 3. Continue close observation.
[2016-08-11 06:26] VITALS: BP 103/59
[2016-08-11] MEDS: hydrOXYzine 25 MG TAB PO PRN ×2 (08:32→22:43)
[2016-08-11] MEDS: NICOTINE 21MG/24HR 1 EA TRANSDERMAL TD SCH (08:32)
[2016-08-11] MEDS: ESCITALOPRAM OXALATE 10 MG TAB (LEXAPRO) PO SCH (08:32)
[2016-08-11] MEDS: ACETAMINOPHEN TAB 650MG DOSE (2X325MG) PO PRN (08:33)
--- NOTE | 2016-08-11 14:20 | DS.PDOC ---
[facility] Discharge Summary Discharge Summary PLEASE DISREGARD THIS NOTE IT WAS ENTERED IN ERROR. Vital Signs Vital Sign - Last 24 Hours 08/10/16 08/11/16 22:18 06:26 Temp 97.6 96.7 Pulse 89 59 Resp 14 16 B/P 128/70 103/59 Medications Scheduled Bupropion HCl (Wellbutrin Sr) 100 Mg Tab 100 MG PO QHS (Reported) Escitalopram Oxalate (Lexapro) 10 Mg Tab 30 MG PO DAILY (Reported) Zolpidem Tartrate (Ambien) 5 Mg Tab 5 MG PO QHS (Reported) Allergies Coded Allergies: No Known Allergies (Unverified , 07/22/16) SYED ARZOLA MD Aug 11, 2016 14:20 Recent and remote memory: [Immediate, short-term and long-term memory is intact] . Attention span and concentration: [Poor, good, fair]. Language: [Normal]. Fund of knowledge: [adequate, intact, poor, fair, good]. Mood: [irrational, elated, irritable, distracted, depressed, anxious, restricted , neutral, fully communicative]. Affect: [appropriate, reactive, flat, constricted, animated, irrational, expansive, restricted, depressed, anxious, agitated, hypomania, lability]. MEDICATIONS ON DISCHARGE: - for . - for . - for . PLAN/FOLLOWUP ARRANGEMENTS: . The amount of time spent in the coordination of care for this patient was approximately minutes. Vital Signs Vital Sign - Last 24 Hours 08/10/16 08/11/16 22:18 06:26 Temp 97.6 96.7 Pulse 89 59 Resp 14 16 B/P 128/70 103/59 Medications Scheduled Bupropion HCl (Wellbutrin Sr) 100 Mg Tab 100 MG PO QHS (Reported) Escitalopram Oxalate (Lexapro) 10 Mg Tab 30 MG PO DAILY (Reported) Zolpidem Tartrate (Ambien) 5 Mg Tab 5 MG PO QHS (Reported) Allergies Coded Allergies: No Known Allergies (Unverified , 07/22/16) SYED ARZOLA MD Aug 11, 2016 14:20
[2016-08-11 18:00] VITALS: BP 119/77
[2016-08-11] MEDS: traZODone 50 MG TAB PO SCH ×2 (20:30→22:43)
[2016-08-12 06:40] VITALS: BP 90/52
--- NOTE | 2016-08-12 08:31 | IPN ---
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 MEDICATIONS: - Lexapro 20 mg by mouth daily every morning - trazodone 50 mg by mouth daily at bedtime SUBJECTIVE: "I am feeling a little better". OBJECTIVE: Patient is improving slowly. She continues to have some degree of psychomotor retardation and restricted faces expression but is interacting a little better with other patients and staff. Patient is participating in all psychotherapeutic activities of the unit and is motivated for treatment. Patient is able to contract for safety and denies suicidal or homicidal ideation during the interview, although she admits to have suicidal thoughts intermittently and at times thinks that it is not worth it to live. MENTAL STATUS EXAMINATION: Patient is dressed in [facility]. Patient is cooperative during the exam. Has fair eye contact. Speech is slow and monotone. Poor. Mood is depressed and anxious but improving. Affect is restricted but also improving. No delusions or hallucinations. Short and retirement memory is fair. Patient is fully oriented. Sensations are intact. Thinking is logical. Thought content is appropriate. Patient is able to contract for safety and denies suicidal or homicidal ideation during the interview, but again, she reports suicidal thoughts intermittently. Insight and judgment is limited. ASSESSMENT: 1. Depression. 2. Status post overdose. PLAN: 1. Lexapro 20 mg by mouth every morning. 2. Trazodone 50 mg by mouth daily at bedtime plus 50 mg as needed for insomnia. 3. Continue close observation.
[2016-08-12] MEDS: hydrOXYzine 25 MG TAB PO PRN ×2 (08:32→17:39)
[2016-08-12] MEDS: ESCITALOPRAM OXALATE 10 MG TAB (LEXAPRO) PO SCH (08:32)
[2016-08-12] MEDS: NICOTINE 21MG/24HR 1 EA TRANSDERMAL TD SCH (08:33)
[2016-08-12 18:00] VITALS: BP 143/72
--- NOTE | 2016-08-12 19:55 | IPN ---
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 MEDICATIONS: - Lexapro 20 mg by mouth every morning - trazodone 50 mg by mouth at bedtime SUBJECTIVE: "I feel better." OBJECTIVE: Patient is motivated for treatment. She has agreed to go [place] for longer term therapy. Patient will have a pass day to get her belongings ready and probably will be discharged tomorrow if transportation is ready. MENTAL STATUS EXAMINATION: Patient dressed in [facility]. Patient is cooperative. Fair eye contact. Speech is slow and monotone but improving. Mood is depressed and anxious but also improving. Affect is somewhat restricted but better. No delusions or hallucinations. Memory is fair. Patient is fully oriented. Associations are intact. Thinking is logical. Thought content is appropriate. Patient is able to contract for safety. Patient denies suicidal or homicidal ideation. Insight and judgment is limited. ASSESSMENT: 1. Depression. 2. Status post overdose. PLAN; 1. Lexapro 20 mg every morning. 2. Trazodone 50 mg by mouth at bedtime plus 50 mg at bedtime as needed for insomnia . 3. Will transfer to long term care pharmacist treatment when the travel paperwork is ready from [facility].
[2016-08-12] MEDS: traZODone 50 MG TAB PO SCH (20:29)
[2016-08-12] MEDS: traZODone 50 MG TAB PO PRN (22:01)
[2016-08-13 06:43] VITALS: BP 82/102
[2016-08-13] MEDS: ESCITALOPRAM OXALATE 10 MG TAB (LEXAPRO) PO SCH (08:54)
[2016-08-13] MEDS: hydrOXYzine 25 MG TAB PO PRN ×2 (08:54→15:23)
[2016-08-13] MEDS: NICOTINE 21MG/24HR 1 EA TRANSDERMAL TD SCH (08:55)
[2016-08-13 18:00] VITALS: BP 110/80
[2016-08-13] MEDS: traZODone 50 MG TAB PO SCH (20:17)
[2016-08-13] MEDS: traZODone 50 MG TAB PO PRN (23:15)
[2016-08-14 07:06] VITALS: BP 94/50
[2016-08-14] MEDS: hydrOXYzine 25 MG TAB PO PRN ×2 (08:30→15:42)
[2016-08-14] MEDS: ESCITALOPRAM OXALATE 10 MG TAB (LEXAPRO) PO SCH (08:30)
[2016-08-14] MEDS: NICOTINE 21MG/24HR 1 EA TRANSDERMAL TD SCH (08:30)
--- NOTE | 2016-08-14 10:53 | IPN ---
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 MEDICATIONS: - Lexapro 20 mg by mouth every morning - trazodone 50 mg by mouth nightly SUBJECTIVE: "I'm waiting to be transferred." OBJECTIVE: Patient is improving slowly, is interacting better with other patients and staff, appears to be motivated and goes to all psychotherapeutic activities of the unit. Denies side effect from medication. No evidence of auditory or visual hallucinations or delusions. Patient is awaiting to be transferred for long-term treatment to [place]. MENTAL STATUS EXAMINATION: Patient dressed in [employer] [facility] [employer]. Patient is cooperative during exam. Speech is slow and monotone. Mood is depressed and anxious but improved. Affect is restricted but also improved. No delusions or hallucinations. Memory is fair. Patient is fully oriented. Associations are intact. Thinking is logical. Thought content is appropriate. Patient is able to contract for safety, and denies suicidal or homicidal ideation during the interview. Insight and judgment is fair. ASSESSMENT: 1. Depression. 2. Status post overdose. PLAN; 1. Continue Lexapro 20 mg every morning. 2. Trazodone 50 mg by mouth nightly, plus 50 mg nightly as needed for insomnia. 3. Pending to be transferred to long-term to [place]. Awaiting for documentation.
[2016-08-14 18:00] VITALS: BP 112/73
[2016-08-14] MEDS: clonazePAM 0.5 MG TAB PO PRN (23:42)
[2016-08-15 06:52] VITALS: BP 129/73
[2016-08-15] MEDS: NICOTINE 21MG/24HR 1 EA TRANSDERMAL TD SCH (08:25)
[2016-08-15] MEDS: ESCITALOPRAM OXALATE 10 MG TAB (LEXAPRO) PO SCH (08:26)
[2016-08-15] MEDS: clonazePAM 0.5 MG TAB PO PRN ×3 (08:26→22:47)
[2016-08-15 18:00] VITALS: BP 126/75
[2016-08-16 06:25] VITALS: BP 108/57
[2016-08-16] MEDS: ESCITALOPRAM OXALATE 10 MG TAB (LEXAPRO) PO SCH (08:15)
[2016-08-16] MEDS: clonazePAM 0.5 MG TAB PO PRN (08:15)
[2016-08-16] MEDS: NICOTINE 21MG/24HR 1 EA TRANSDERMAL TD SCH (08:23)
[2016-08-16 11:20] LABS: CONTROL LINE HCG INT CTR LINE PRESENT
[2016-08-16] MEDS: NICOTINE POLACRILEX 2 MG GUM PO PRN ×2 (15:52→19:51)
[2016-08-16 18:00] VITALS: BP 117/74
[2016-08-16] MEDS ORDERED: clonazePAM 0.5 MG TAB PO ONE (21:15)
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
[2016-08-17 06:42] VITALS: BP 94/51
[2016-08-17] MEDS: ESCITALOPRAM OXALATE 10 MG TAB (LEXAPRO) PO SCH (08:05)
[2016-08-17] MEDS: clonazePAM 0.5 MG TAB PO PRN ×2 (09:47→14:36)
[2016-08-17] MEDS: NICOTINE POLACRILEX 2 MG GUM PO PRN ×5 (09:47→20:26)
[2016-08-17] MEDS: ACETAMINOPHEN TAB 650MG DOSE (2X325MG) PO PRN (12:07)
[2016-08-17 18:00] VITALS: BP 119/70
[2016-08-17] MEDS ORDERED: clonazePAM 0.5 MG TAB PO ONE (21:00)
[2016-08-18 06:00] VITALS: BP 91/55
[2016-08-18] MEDS: ESCITALOPRAM OXALATE 10 MG TAB (LEXAPRO) PO SCH (08:21)
[2016-08-18] MEDS: NICOTINE POLACRILEX 2 MG GUM PO PRN ×2 (08:21→11:26)
[2016-08-18] MEDS ORDERED: NICO2GUM62 PO (08:33)
[2016-08-18] MEDS ORDERED: clonazePAM 0.5 MG TAB PO ONE (09:45)
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
== END 2016-08-18 13:35 | DRG 881 ==
LOC: M PSY 18:24
PROVIDERS: ADMIT Psychiatry & Neurology Psychiatry; ATTEND Psychiatry & Neurology Psychiatry
DX: F43.21 Adjustment disorder with depressed mood (principal); F60.89 Other specific personality disorders; R94.31 Abnormal electrocardiogram [ECG] [EKG]; G47.00 Insomnia, unspecified; S61.512A Laceration without foreign body of left wrist, initial encounter; S61.511A Laceration without foreign body of right wrist, initial encounter; Z91.5 Personal history of self-harm; Z79.899 Other long term (current) drug therapy; X78.1XXA Intentional self-harm by knife, initial encounter; Y92.133 Barracks on military base as the place of occurrence of the external cause; Y93.89 Activity, other specified; Y99.9 Unspecified external cause status